=== PATIENT | male | born 1955 | race Caucasian/White ===

== ENCOUNTER 2019-06-29 11:22 | Observation (INO) | payer BC, MEDICARE ==
[2019-06-29] MEDS ORDERED: ASPIRIN 81 MG PO STA (11:41)
[2019-06-29] MEDS ORDERED: SODIUM CHLORIDE 0.9% 1,000 ML IV STA (11:41)
[2019-06-29] MEDS ORDERED: MORPHINE SULFATE 4 MG/ML SYRINGE IVP STA ×2 (11:42→13:58)
[2019-06-29 12:01] LABS: Basophils % (A) 0 %; Eosinophils # (A) 0.1 k/uL (0-0.7); Eosinophils % (A) 1 %; HGB 16.8 gm/dL (13.0-17.5); Lymphocytes # (A) 1.3 k/uL (1.0-4.8); Lymphocytes % (A) 8 %; MCH 30.6 pg (25.0-35.0); MCHC 32.9 g/dL (31.0-37.0); MCV 93.1 fL (80.0-100.0); Mean Platelet Volume 7.8; Monocytes # (A) 0.4 k/uL (0-1.0); Monocytes % (A) 3 %; Neutrophils # (A) 14.6 k/uL (1.3-7.7); Neutrophils % (A) 88 %; Platelet Count 256 k/uL (150-450); RBC 5.48 m/uL (4.30-5.90); RDW 13.5 % (11.5-15.5); WBC 16.6 k/uL (3.8-10.6)
--- NOTE | 2019-06-29 12:06 | ED ---
Chest Pain HPI - General Chief Complaint: Chest Pain Stated Complaint: Chest pain Time Seen by Provider: 06/29/19 11:25 Source: patient Mode of arrival: ambulatory Limitations: no limitations - History of Present Illness Initial Comments: The patient is a 64-year-old male with no past medical history who presents to the emergency room with reported chest pain. He states that around 7 AM this morning had sudden onset of chest pain located over the left side of his chest which radiates into his left arm up to his left jaw. He has associated shortnes s of breath. Denies nausea or vomiting. No previous history of cardiac disease. Denies history of CO or arrhythmias. States he last had a stress test when he was 48 years old and is reportedly normal. Denies ripping calf. He does not follow with a doctor currently. Used to have a history of alcohol abuse. States he only drinks twice per month for which he did have one beer yesterday. He also admits to THC use. Does not take any prescribed medications. Patient continues to smoke a pack of cigarettes per day. He denies a ripping or tearing sensation to his back. Denies fevers or chills. No cough or hemoptysis. Denies abdominal pain. No back or flank pain. There are no alleviating, precipitating or modifying factors - Related Data Home Medications Medication Instructions Recorded Confirmed Cholecalciferol [Vitamin D3 (25 5,000 unit PO DAILY 06/29/19 06/29/19 Mcg = 1000 Iu)] Multivitamins, Thera [Multivitamin 1 tab PO DAILY 06/29/19 06/29/19 (formulary)] Previous Rx's Medication Instructions Recorded Apixaban [Eliquis] 5 mg PO BID #60 tab 06/30/19 Metoprolol Succinate (ER) [Toprol 12.5 mg PO DAILY #30 tab.er.24h 06/30/19 XL] Allergies Allergy/AdvReac Type Severity Reaction Status Date / Time Sulfa (Sulfonamide AdvReac Rash/Hives Verified 06/29/19 13:49 Antibiotics) Review of Systems ROS Statement: Those systems with pertinent positive or pertinent negative responses have been documented in the HPI. ROS Other: All systems not noted in ROS Statement are negative. EKG Findings - EKG Comments: EKG Findings:: EKG demonstrates A. fib with a rate of 127. QRS 90. QTC of 475. ST depression in inferior leads. No acute ST segment elevations. A repeat EKG was performed at 1408 which demonstrated that the patient converted to normal sinus rhythm. Rate is 52. When necessary of 160. QRS 92. QTC of 399. There is J-point elevation in leads 2, 3, aVF V2 through V6. Inverted T-wave in aVL. Past Medical History Past Medical History: Thyroid Disorder Additional Past Medical History / Comment(s): pts. reports pt. has had back surgery and had broken clavicles in the past History of Any Multi-Drug Resistant Organisms: None Reported Past Surgical History: Orthopedic Surgery Past Anesthesia/Blood Transfusion Reactions: No Reported Reaction Past Psychological History: No Psychological Hx Reported Smoking Status: Current every day smoker Past Alcohol Use History: None Reported Past Drug Use History: Marijuana - Past Family History Father Family Medical History: Cancer Mother Additional Family Medical History / Comment(s): pts. states his mother from alzheimers General Exam Limitations: no limitations General appearance: alert, in no apparent distress Head exam: Present: atraumatic, normocephalic, normal inspection Eye exam: Present: normal appearance, PERRL, EOMI. Absent: scleral icterus, conjunctival injection, periorbital swelling ENT exam: Present: normal exam, mucous membranes moist Neck exam: Present: normal inspection. Absent: tenderness, meningismus, lymphadenopathy Respiratory exam: Present: normal lung sounds bilaterally. Absent: respiratory distress, wheezes, rales, rhonchi, stridor Cardiovascular Exam: Present: tachycardia, irregular rhythm, normal heart sounds. Absent: systolic murmur, diastolic murmur, rubs, gallop, clicks GI/Abdominal exam: Present: soft, normal bowel sounds. Absent: distended, tenderness, guarding, rebound, rigid Extremities exam: Present: normal inspection, full ROM, normal capillary refill. Absent: tenderness, pedal edema, joint swelling, calf tenderness Back exam: Present: normal inspection Neurological exam: Present: alert, oriented X3, CN II-XII intact Psychiatric exam: Present: normal affect, normal mood Skin exam: Present: warm, dry, intact, normal color. Absent: rash Course Vital Signs 06/29/19 06/29/19 06/29/19 11:24 13:13 13:23 Temperature 98.1 F Pulse Rate 72 133 H 130 H Respiratory 18 18 Rate Blood Pressure 130/92 123/93 O2 Sat by Pulse 99 98 97 Oximetry 06/29/19 06/29/19 06/29/19 14:00 15:00 16:00 Temperature 98.1 F Pulse Rate 58 L 51 L 53 L Respiratory 18 18 18 Rate Blood Pressure 103/68 101/67 113/52 O2 Sat by Pulse 100 100 99 Oximetry Chest Pain MDM - MDM Upon arrival the patient was placed into room 2. A thorough history and physical exam was performed. 12-lead EKG was performed which demonstrates the patient is in atrial fibrillation with rapid ventricular response up to 150. The patient denies a history of A. fib. Peripheral IV was established. The patient was given a liter bolus of normal saline. Laboratory studies were conducted patient went for chest x-ray. He is started on a Cardizem drip for which she does have improvement in his heart rate. He was given an initial 10 mg bolus and placed on 5 mg per hour. He patient was also given 4 of morphine for pain. Lab studies demonstrated a white blood cell count of 16.6. D-dimer 0.46. Troponin less than 0.012. BNP is 1330. Chest x-ray demonstrates COPD and trace right pleural effusion or chronic pleural reaction. I discussed these results with the patient. I discussed diagnosis, differential treatment options. The patient has no contra indication to heparin and therefore the patient is started on heparin drip. I did recommend hospitalization for cardiology consultation for which the patient did agree. I discussed the case with Dr. Reeves who accepted admission for the patient. He is currently awaiting a bed on the floor in stable condition At 1410 I was made aware that the patient converted to normal sinus rhythm. A repeat EKG was performed. Cardizem will be discontinued at this time. Critical Care Time Critical Care Time: Yes Critical Care Time: 35 minutes Disposition Clinical Impression: New onset a-fib, Chest pain Disposition: ADMITTED IP TO THIS HOSP Condition: Stable Is patient prescribed a controlled substance at d/c from ED?: No Decision to Admit Reason: Admit from EC Decision Date: 06/29/19 Decision Time: 13:50
[2019-06-29 12:10] LABS: ALT 16 U/L (4-49); AST 23 U/L (17-59); African American GFR (CKD) >90 (>60 ml/min/1.73 sqM); Albumin 4.3 g/dL (3.5-5.0); Alkaline Phosphatase 80 U/L (38-126); Anion Gap 6 mmol/L; Blood Urea Nitrogen 11 mg/dL (9-20); Calcium 9.3 mg/dL (8.4-10.2); Carbon Dioxide 27 mmol/L (22-30); Chloride 104 mmol/L (98-107); Creatine Kinase 97 U/L (55-170); Glucose 129 mg/dL (74-99); Magnesium 1.9 mg/dL (1.6-2.3); Non-African American GFR(CKD) >90 (>60 ml/min/1.73 sqM); Potassium 4.1 mmol/L (3.5-5.1); Sodium 137 mmol/L (137-145); Total Bilirubin 0.5 mg/dL (0.2-1.3)
[2019-06-29 12:16] LABS: D-Dimer 0.46 mg/L FEU (<0.60); INR 0.9 (<1.2); Partial Thromboplastin Time 24.7 sec (22.0-30.0); Prothrombin Time 9.7 sec (9.0-12.0)
[2019-06-29] MEDS ORDERED: MAGNESIUM SULFATE-D5W PMX 1 GM in DEXTROSE/WATER 1 100ML.BAG IVPB ONE (12:37)
--- NOTE | 2019-06-29 12:37 | XR ---
EXAMINATION TYPE: XR chest 2V DATE OF EXAM: 06/29/2019 COMPARISON: 02/01/2014 HISTORY: Chest pain for one day TECHNIQUE: Frontal and lateral views of the chest are obtained. FINDINGS: There is no focal air space opacity, pleural effusion, or pneumothorax seen. Pulmonary hy perinflation of underlying COPD. Blunting of the right costophrenic angle from chronic trace pleural effusion or chronic pleural reaction. The cardiac silhouette size is within normal limits. Mild mult ilevel degenerative change of the spine. The osseous structures are intact. IMPRESSION: COPD and chronic trace right pleural effusion or chronic pleural reaction stable from 20 14.
[2019-06-29] MEDS ORDERED: DILTIAZEM DRIP BOLUS FROM BAG 1 MG SOLN IV ONE (12:44)
[2019-06-29] MEDS ORDERED: DILTIAZEM 125 MG in SODIUM CHLORIDE 0.9% 100 ML IV SCH (13:00)
[2019-06-29] MEDS ORDERED: HEPARIN SODIUM,PORCINE 5,000 UNIT/ML 1 ML VIAL IV ONE (13:35)
[2019-06-29] MEDS ORDERED: HEPARIN SODIUM,PORCINE 5,000 UNIT/ML 1 ML VIAL IV PRN (13:35)
[2019-06-29] MEDS ORDERED: HEPARIN SOD,PORK IN 0.45% NACL 25,000 UNIT in 0.45% NACL 1 250ML.BAG IV SCH (13:45)
[2019-06-29] MEDS ORDERED: NALOXONE 0.4 MG/ML 1 ML VIAL IV PRN (13:51)
--- NOTE | 2019-06-29 15:11 | P.CRDCN ---
History of Present Illness Consult date: 06/29/19 Consult reason: atrial fibrillation Chief complaint: Chest pain History of present illness: This is a 64-year-old gentleman with no significant past medical history of any cardiac issues, he denies any history of hypertension, no diabetes, no hyperlipidemia, he smokes one pack of cigarettes per day, uses marijuana, COPD, he used to drink alcohol quite heavily, at this time he only has an alcoholic drink once or twice a month. He does have history of bowel surgery. Patient presented to the hospital on this occasion with symptoms of chest discomfort which she described as quite severe in nature, radiating across his entire chest into his left arm and left jaw area, he does admit to having some associated shortness of breath. Patient states he denies any fever at home but has been having chills at home. He also has a cough in the morning which she attributes to his and nicotine dependence and has been on a regular basis. His EKG on presentation here showed atrial fibrillation with a rapid ventricular response, patient was initiated on an IV Cardizem drip and converted to normal sinus rhythm. His subsequent EKG showed a normal sinus rhythm with peaked T waves in all of the leads. Chest x-ray shows COPD and chronic trace of right sided pleural effusion, stable from 2013. Blood pressure at this time 104/60 with a heart rate in the 50s, 100% on 2 L of oxygen. White blood cell count 16.6, hemoglobin 16.8, platelet count 256. D-dimer 0.4. Sodium 137, potassium 4.1, BUN 11, creatinine 0.7, magnesium 1.9. Troponin 0.012, BNP level 1330, TSH 2.3. At the time of my examination in the emergency room, patient continues to have chest pain but only on taking a very deep breath. Past Medical History Past Medical History: Thyroid Disorder Additional Past Medical History / Comment(s): pts. reports pt. has had back surgery and had broken clavicles in the past History of Any Multi-Drug Resistant Organisms: None Reported Past Surgical History: Orthopedic Surgery Past Anesthesia/Blood Transfusion Reactions: No Reported Reaction Past Psychological History: No Psychological Hx Reported Smoking Status: Current every day smoker Past Alcohol Use History: None Reported Past Drug Use History: Marijuana - Past Family History Father Family Medical History: Cancer Mother Additional Family Medical History / Comment(s): pts. states his mother from alzheimers Medications and Allergies Home Medications Medication Instructions Recorded Confirmed Type Cholecalciferol [Vitamin D3 (25 5,000 unit PO DAILY 06/29/19 06/29/19 History Mcg = 1000 Iu)] Multivitamins, Thera [Multivitamin 1 tab PO DAILY 06/29/19 06/29/19 History (formulary)] Allergies Allergy/AdvReac Type Severity Reaction Status Date / Time Sulfa (Sulfonamide AdvReac Rash/Hives Verified 06/29/19 13:49 Antibiotics) Physical Exam Vitals: Vital Signs Temp Pulse Resp BP Pulse Ox 06/29/19 14:00 58 L 18 103/68 100 06/29/19 13:23 130 H 18 123/93 97 06/29/19 13:13 133 H 98 06/29/19 11:24 98.1 F 72 18 130/92 99 Intake and Output 06/29/19 06/29/19 06/29/19 06:59 14:59 22:59 Other: Weight 71.668 kg PHYSICAL EXAMINATION: GENERAL: 64-year-old gentleman in no acute distress at the time of my examination HEENT: Head is atraumatic, normocephalic. Pupils equal, round. Sclera anicteric. Conjunctiva are clear. Mucous membranes of the mouth are moist. Neck is supple. There is no elevated jugular venous pressure. No carotid bruit is heard. HEART EXAMINATION: Heart S1, S2 normal. No murmur or gallop heard. CHEST EXAMINATION: lungs reveal some fine scattered wheezing throughout. ABDOMEN: Soft, nontender. Bowel sounds are heard. No organomegaly noted. EXTREMITIES: 2+ peripheral pulses with no evidence of peripheral edema and no calf tenderness noted. NEUROLOGIC patient is awake, alert and oriented 3 . . Results 06/29/19 11:40 06/29/19 11:40 Cardiac Enzymes 06/29/19 06/29/19 Range/Units 11:40 11:40 AST 23 (17-59) U/L Troponin I <0.012 (0.000-0.034) ng/mL Coagulation 06/29/19 Range/Units 11:40 PT 9.7 (9.0-12.0) sec APTT 24.7 (22.0-30.0) sec CBC 06/29/19 Range/Units 11:40 WBC 16.6 H (3.8-10.6) k/uL RBC 5.48 (4.30-5.90) m/uL Hgb 16.8 (13.0-17.5) gm/dL Hct 51.0 (39.0-53.0) % Plt Count 256 (150-450) k/uL Comprehensive Metabolic Panel 06/29/19 Range/Units 11:40 Sodium 137 (137-145) mmol/L Potassium 4.1 (3.5-5.1) mmol/L Chloride 104 (98-107) mmol/L Carbon Dioxide 27 (22-30) mmol/L BUN 11 (9-20) mg/dL Creatinine 0.73 (0.66-1.25) mg/dL Glucose 129 H (74-99) mg/dL Calcium 9.3 (8.4-10.2) mg/dL AST 23 (17-59) U/L ALT 16 (4-49) U/L Alkaline Phosphatase 80 (38-126) U/L Total Protein 7.0 (6.3-8.2) g/dL Albumin 4.3 (3.5-5.0) g/dL Current Medications Generic Name Dose Route Start Last Admin Trade Name Freq PRN Reason Stop Dose Admin Heparin Sodium (Porcine) 0 unit 06/29/19 13:35 Heparin IV PER PROTOCOL PRN Low PTT Protocol Diltiazem HCl 125 mg/ Sodium 125 mls @ 5 mls/hr 06/29/19 13:00 06/29/19 13:19 Chloride IV 5 mg/hr .Q24H YANICK 5 mls/hr Administration 5 MG/HR Heparin Sodium/Sodium Chloride 250 mls @ 8.6 mls/hr 06/29/19 13:45 06/29/19 14:06 25,000 unit/ Sodium Chloride IV 12 units/kg/hr .Q24H YANICK 8.6 mls/hr Administration Protocol 12 UNITS/KG/HR Naloxone HCl 0.2 mg 06/29/19 13:51 Narcan IV Q2M PRN Opioid Reversal Intake and Output 06/29/19 06/29/19 06/29/19 06:59 14:59 22:59 Other: Weight 71.668 kg Patient Weight 06/30/19 06:59 Weight 71.668 kg 06/29/19 11:40 06/29/19 11:40 EKG Interpretations (text) Initial EKG shows atrial fibrillation with rapid ventricular response Assessment and Plan Plan: Assessment and plan #1 atrial fibrillation with rapid ventricular response, converted to normal sinus rhythm, paroxysmal #2 nicotine dependence #3 marijuana use #4 COPD #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 Admitted to the telemetry unit overnight. DNP note has been reviewed, I agree with a documented findings and plan of care. Patient was seen and examined.
--- NOTE | 2019-06-29 17:32 | ECHOF ---
Referral Reason:afib MEASUREMENTS -------- HEIGHT: 182.9 cm WEIGHT: 71.7 kg BP: IVSd: 0.9 cm (0.6 - 1.1) LVIDd: 4.3 cm (3.9 - 5.3) LVPWd: 1.1 cm (0.6 - 1.1) IVSs: 1.4 cm LVIDs: 2.3 cm LVPWs: 1.4 cm LAESV Index (A-L): 29.36 ml/m Ao Diam: 3.2 cm (2.0 - 3.7) AV Cusp: 2.0 cm (1.5 - 2.6) LA Diam: 4.2 cm (2.7 - 3.8) MV EXCURSION: 24.295 mm (> 18.000) MV EF SLOPE: 122 mm/s (70 - 150) EPSS: 3.1 cm MV E Estuardo: 0.57 m/s MV DecT: 190 ms MV A Estuardo: 0.44 m/s MV E/A Ratio: 1.28 RAP: 5.00 mmHg RVSP: 33.70 mmHg TAPSE: 28.11 mm FINDINGS -------- Sinus rhythm. This was a technically good study. The left ventricular size is normal. Left ventricular wall thickness is normal. Overall left vent ricular systolic function is low-normal with, an EF between 50 - 55 %. The diastolic filling patter n is normal for the age of the patient 6.56. The right ventricle is normal in size. The left atrial size is normal. Normal LA size by volume 22+/-6 ml/m2. The right atrial size is normal. Aortic valve is trileaflet and is mildly thickened. The mitral valve is normal. The mitral valve leaflets are mildly thickened. There is trace mitral regurgitation. The tricuspid valve appears structurally normal. Trace tricuspid regurgitation present. Right omar tricular systolic pressure is normal at < 35 mmHg. There is no pulmonic regurgitation present. The aortic root size is normal. Normal inferior vena cava with normal inspiratory collapse consistent with estimated right atrial pre ssure of 5 mmHg. There is no pericardial effusion. CONCLUSIONS -------- 1. Sinus rhythm. 2. This was a technically good study. 3. The left ventricular size is normal. 4. Left ventricular wall thickness is normal. 5. Overall left ventricular systolic function is low-normal with, an EF between 50 - 55 %. 6. The diastolic filling pattern is normal for the age of the patient 6.56 7. The right ventricle is normal in size. 8. The left atrial size is normal. 9. Normal LA size by volume 22+/-6 ml/m2. 10. The right atrial size is normal. 11. Aortic valve is trileaflet and is mildly thickened. 12. The mitral valve is normal. 13. The mitral valve leaflets are mildly thickened. 14. There is trace mitral regurgitation. 15. The tricuspid valve appears structurally normal. 16. Trace tricuspid regurgitation present. 17. Right ventricular systolic pressure is normal at < 35 mmHg. 18. There is no pulmonic regurgitation present. 19. The aortic root size is normal. 20. Normal inferior vena cava with normal inspiratory collapse consistent with estimated right atrial pressure of 5 mmHg. 21. There is no pericardial effusion. PROGRESS CLERK: Agnieszka Corrales RDCS
[2019-06-29] MEDS ORDERED: IPRATROPIUM-ALBUTEROL 3 ML NEB INHALATION PRN (17:33)
[2019-06-29] MEDS ORDERED: HYDROcodone/APAP 5-325MG 1 EACH TAB PO PRN (17:33)
[2019-06-29] MEDS ORDERED: ACETAMINOPHEN TAB 325 MG TAB PO PRN (17:33)
--- NOTE | 2019-06-29 17:55 | P.HPIM ---
History of Present Illness H&P Date: 06/29/19 Chief Complaint: chest pain 58 year old male with PMH of COPD presents the ED for chest pain. patient states that the pain woke him up from sleep. Patient reports chest pain that was left- sided and pressure-like in nature. Patient reported radiation towards his left arm. Pain was 12 out of 10 in severity. His chest pain was associated with shortness of breath. He denies any diaphoresis, nausea or vomiting. Patient currently complains of chest pain with deep inspiration. He reports a chronic headache that starts from the occipital area and radiates to the front of his head. Patient also reports a cough that he describes as a smoker's cough. He also reports chronic diarrhea after he had a colonic resection. He denies any headache, lower extremity edema, fever or chills, changes in urination. No changes in appetite or weight. Patient denies any dizziness, num bness/weakness/tingling of the extremities. In the ED, his vital signs are stable except for heart rate of 133. CBC showed a leukocytosis of 16.6. Coagulation panel was negative. D-dimer was negative.chest x-ray showed signs of COPD. EKG showed atrial fibrillation with rapid ventricular rate. Patient is admitted for A. fib with RVR with cardiology in consultation. Review of Systems Pertinent positives and negatives as discussed in HPI, a complete review of systems was performed and all other systems are negative. Past Medical History Past Medical History: Thyroid Disorder Additional Past Medical History / Comment(s): pts. reports pt. has had back surgery and had broken clavicles in the past History of Any Multi-Drug Resistant Organisms: None Reported Past Surgical History: Orthopedic Surgery Past Anesthesia/Blood Transfusion Reactions: No Reported Reaction Past Psychological History: No Psychological Hx Reported Smoking Status: Current every day smoker Past Alcohol Use History: None Reported Past Drug Use History: Marijuana - Past Family History Father Family Medical History: Cancer Mother Additional Family Medical History / Comment(s): pts. states his mother from alzheimers Medications and Allergies Home Medications Medication Instructions Recorded Confirmed Type Cholecalciferol [Vitamin D3 (25 5,000 unit PO DAILY 06/29/19 06/29/19 History Mcg = 1000 Iu)] Multivitamins, Thera [Multivitamin 1 tab PO DAILY 06/29/19 06/29/19 History (formulary)] Allergies Allergy/AdvReac Type Severity Reaction Status Date / Time Sulfa (Sulfonamide AdvReac Rash/Hives Verified 06/29/19 13:49 Antibiotics) Physical Exam Vitals: Vital Signs Temp Pulse Resp BP Pulse Ox 06/29/19 16:00 98.1 F 53 L 18 113/52 99 06/29/19 15:00 51 L 18 101/67 100 06/29/19 14:00 58 L 18 103/68 100 06/29/19 13:23 130 H 18 123/93 97 06/29/19 13:13 133 H 98 06/29/19 11:24 98.1 F 72 18 130/92 99 Intake and Output 06/29/19 06/29/19 06/29/19 06:59 14:59 22:59 Other: Weight 71.668 kg General: [non toxic], [no distress], [appears at stated age] Derm: [warm], [dry] Head: [atraumatic], [normocephalic], [symmetric] Eyes: [EOMI], [no lid lag], [anicteric sclera] Mouth: [no lip lesion], [mucus membranes moist] Cardiovascular: [S1S2 reg], [no murmur], [positive DP pulse bilateral], Lungs: [decreased breath sounds bilateral], [no rhonchi, no rales] , [no accessory muscle use] Abdominal: [soft], [ nontender to palpation], [no guarding], [no appreciable organomegaly] Ext: [no gross muscle atrophy], [no edema], [no contractures] Neuro: [ CN II-XI grossly intact], [no focal neuro deficits] Psych: [Alert], [oriented], [appropriate affect] Results CBC & Chem 7: 06/29/19 11:40 06/29/19 11:40 Labs: Abnormal Lab Results - Last 24 Hours (Table) 06/29/19 06/29/19 Range/Units 11:40 11:40 WBC 16.6 H (3.8-10.6) k/uL Neutrophils # 14.6 H (1.3-7.7) k/uL Glucose 129 H (74-99) mg/dL Assessment and Plan Assessment: Chest pain A. fib with RVR Nicotine dependence COPD Leukocytosis Patient symptomsof chest pain are related to A. fib with RVR. Troponin was less than 0.012 with EKG showing A. fib with RVR with heart rate of 147. Chest x-ray showing signs of COPD. Patient was given diltiazem IV in the ED which converted him to sinus. He has been started on a heparin drip. Plan is to trend tropo melissa/EKG to rule out ACS. Obtain echocardiogram. Patient be placed on telemetry monitoring. He has been started on metoprolol by mouth. Cardiology has been consulted. He will be offered nicotine patch for his nicotine dependence. His COPD is stable and he will be given DuoNeb as needed for shortness of breath or wheezing. Patient has a WBC count of 16.6 with neutrophilic predominance. There are no signs of infection and is likely reactive. We will continue to monitor the patient and repeat CBC tomorrow morning. Patient is pending clinical improvement. He is admitted for anticipated greater than 48 hour admission for A. fib with RVR and cardiology consultation. DVT prophylaxis: [heparin drip] Discussed with: [patient] Anticipated discharge: [home] Anticipated discharge place: [1-2 days] A total of [45] minutes was spent on the care of this complex patient more than 50% of the time was spent in counseling and care coordination.
[2019-06-29] MEDS: METOPROLOL SUCCINATE (ER) 25 MG TAB.ER.24H PO SCH (22:02)
[2019-06-30 05:45] LABS: Basophils % (A) 0 %; Eosinophils # (A) 0.2 k/uL (0-0.7); Eosinophils % (A) 2 %; HCT 45.5 % (39.0-53.0); HGB 14.9 gm/dL (13.0-17.5); Lymphocytes # (A) 1.8 k/uL (1.0-4.8); Lymphocytes % (A) 18 %; MCH 30.6 pg (25.0-35.0); MCHC 32.7 g/dL (31.0-37.0); MCV 93.8 fL (80.0-100.0); Mean Platelet Volume 7.9; Monocytes # (A) 0.7 k/uL (0-1.0); Monocytes % (A) 7 %; Neutrophils # (A) 7.1 k/uL (1.3-7.7); Neutrophils % (A) 72 %; Platelet Count 186 k/uL (150-450); RBC 4.85 m/uL (4.30-5.90); RDW 13.5 % (11.5-15.5); WBC 9.9 k/uL (3.8-10.6)
[2019-06-30 05:59] LABS: Partial Thromboplastin Time 63.1 sec (22.0-30.0); Prothrombin Time 10.5 sec (9.0-12.0)
[2019-06-30] MEDS ORDERED: APIXABAN 5 MG TAB PO SCH (11:45)
--- NOTE | 2019-06-30 12:00 | P.PN ---
Subjective Progress Note Date: 06/30/19 This is a 64-year-old gentleman with no significant past medical history of any cardiac issues, he denies any history of hypertension, no diabetes, no hyperlipidemia, he smokes one pack of cigarettes per day, uses marijuana, COPD, he used to drink alcohol quite heavily, at this time he only has an alcoholic drink once or twice a month. He does have history of bowel surgery. Patient presented to the hospital on this occasion with symptoms of chest discomfort which she described as quite severe in nature, radiating across his entire chest into his left arm and left jaw area, he does admit to having some associated shortness of breath. Patient states he denies any fever at home but has been having chills at home. He also has a cough in the morning which she attributes to his and nicotine dependence and has been on a regular basis. His EKG on presentation here showed atrial fibrillation with a rapid ventricular response, patient was initiated on an IV Cardizem drip and converted to normal sinus rhythm. His subsequent EKG showed a normal sinus rhythm with peaked T waves in all of the leads. Chest x-ray shows COPD and chronic trace of right sided pleural effusion, stable from 2013. Blood pressure at this time 104/60 with a heart rate in the 50s, 100% on 2 L of oxygen. White blood cell count 16.6, hemoglobin 16.8, platelet count 256. D-dimer 0.4. Sodium 137, potassium 4.1, BUN 11, creatinine 0.7, magnesium 1.9. Troponin 0.012, BNP level 1330, TSH 2.3. At the time of my examination in the emergency room, patient continues to have chest pain but only on taking a very deep breath. 06/30/2019 Patient seen and examined this morning, overall feeling significantly better. Continues to be in a normal sinus rhythm. Echocardiogram with Doppler study revealed an ejection fraction of 50-55%. Objective - Vital Signs Vital signs: Vital Signs Temp 98.4 F 06/30/19 03:36 Pulse 53 L 06/30/19 03:37 Resp 18 06/30/19 03:37 BP 110/65 06/30/19 03:36 Pulse Ox 95 06/30/19 03:36 Intake & Output 06/29/19 06/30/19 06/30/19 18:59 06:59 18:59 Intake Total 1164.93 420 Balance 1164.93 420 Weight 71.668 kg 71.6 kg Intake: IV 600 0.9 @75ml/hr 600 Intake, IV Titration 64.93 Amount Heparin Sod,Pork in 0.45% 64.93 NaCl 25,000 unit In 0.45 % NaCl 1 250ml.bag @ 12 UNITS/KG/HR 8.6 mls/hr IV .Q24H [facility] Rx#:[id number] Oral 500 420 Other: Voiding Method Toilet # Voids 1 - Exam PHYSICAL EXAMINATION: GENERAL: 64-year-old gentleman in no acute distress at the time of my examination HEENT: Head is atraumatic, normocephalic. Pupils equal, round. Sclera anicteric. Conjunctiva are clear. Mucous membranes of the mouth are moist. Neck is supple. There is no elevated jugular venous pressure. No carotid bruit is heard. HEART EXAMINATION: Heart S1, S2 normal. No murmur or gallop heard. CHEST EXAMINATION: lungs reveal some fine scattered wheezing throughout. ABDOMEN: Soft, nontender. Bowel sounds are heard. No organomegaly noted. EXTREMITIES: 2+ peripheral pulses with no evidence of peripheral edema and no calf tenderness noted. NEUROLOGIC patient is awake, alert and oriented 3 . - Labs CBC & Chem 7: 06/30/19 05:30 06/29/19 11:40 Labs: Abnormal Lab Results - Last 24 Hours (Table) 06/29/19 06/29/19 06/29/19 Range/Units 11:40 11:40 20:10 WBC 16.6 H (3.8-10.6) k/uL Neutrophils # 14.6 H (1.3-7.7) k/uL APTT 31.1 H (22.0-30.0) sec Glucose 129 H (74-99) mg/dL 06/30/19 Range/Units 05:30 WBC (3.8-10.6) k/uL Neutrophils # (1.3-7.7) k/uL APTT 63.1 H (22.0-30.0) sec Glucose (74-99) mg/dL Assessment and Plan Plan: Assessment and plan #1 atrial fibrillation with rapid ventricular response, converted to normal sinus rhythm, paroxysmal #2 nicotine dependence #3 marijuana use #4 COPD #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 Continue beta garrett. Patient may be able to be discharged home once cleared by primary. We'll make him a follow-up appointment in the office post discharge. DNP note has been reviewed, I agree with a documented findings and plan of care. Patient was seen and examined.
[2019-06-30 12:21] VITALS: PULSE 51; TEMP 98.2
[2019-06-30] MEDS: METOPROLOL SUCCINATE (ER) 25 MG TAB.ER.24H PO SCH (12:28)
--- NOTE | 2019-06-30 13:25 | P.DS ---
Providers Date of admission: 06/29/19 13:50 Expected date of discharge: 06/30/19 Attending physician: Ronny Case MD Consults: 06/29/19 13:51 Consult Physician Urgent Consulting Provider: [facility] Consult Reason/Comments: new onset afib Do you want consulting provider notified?: Yes Primary care physician: Stated None Hospital Course: 58 year old male with PMH of COPD presents the ED for chest pain. patient states that the pain woke him up from sleep. Patient reports chest pain that was left- sided and pressure-like in nature. Patient reported radiation towards his left arm. Pain was 12 out of 10 in severity. His chest pain was associated with shortness of breath. He denies any diaphoresis, nausea or vomiting. Patient currently complains of chest pain with deep inspiration. He reports a chronic headache that starts from the occipital area and radiates to the front of his head. Patient also reports a cough that he describes as a smoker's cough. He also reports chronic diarrhea after he had a colonic resection. He denies any headache, lower extremity edema, fever or chills, changes in urination. No changes in appetite or weight. Patient denies any dizziness, numbness/weakness/tingling of the extremities. In the ED, his vital signs are stable except for heart rate of 133. CBC showed a leukocytosis of 16.6. Coagulation panel was negative. D-dimer was negative.chest x-ray showed signs of COPD. EKG showed atrial fibrillation with rapid ventricular rate. Patient is admitted for A. fib with RVR with cardiology in consultation. Patient symptoms of chest pain are related to A. fib with RVR. Troponin was less than 0.012x3 with EKG showing A. fib with RVR with heart rate of 147. Chest x-ray showing signs of COPD. Patient was given diltiazem IV in the ED which converted him to sinus. He has been started on a heparin drip and transitioned to Eliquis for discharge. Echocardiogram showed EF 50-55%. He has been started on metopro lol by mouth and maintain sinus rhythm. Patient was seen and examined. No acute events overnight. Patient reports significant improvement in his symptoms since admission. He denies any chest pain, shortness of breath or palpitations. No nausea or vomiting. No fever or chills. General: [non toxic], [no distress], [appears at stated age] Derm: [warm], [dry] Head: [atraumatic], [normocephalic], [symmetric] Eyes: [EOMI], [no lid lag], [anicteric sclera] Mouth: [no lip lesion], [mucus membranes moist] Cardiovascular: [S1S2 reg], [no murmur], [positive DP pulse bilateral], Lungs: [decreased breath sounds bilateral], [no rhonchi, no rales] , [no accessory muscle use] Abdominal: [soft], [ nontender to palpation], [no guarding], [no appreciable organomegaly] Ext: [no gross muscle atrophy], [no edema], [no contractures] Neuro: [no focal neuro deficits] Psych: [Alert], [oriented], [appropriate affect] Chest pain A. fib with RVR Nicotine dependence COPD Patient is maintain sinus rhythm. He'll be discharged on metoprolol by mouth. Warning symptoms of abnormal bleeding for Eliquis discussed with patient. Leukocytosis is resolved. He will be discharged home with close follow-up with cardiology. This complex discharge took about 35 minutes to complete. Pertinent Studies: Chest x-ray, echocardiogram Patient Condition at Discharge: Stable Plan - Discharge Summary Discharge Rx Participant: No New Discharge Prescriptions: New Apixaban [Eliquis] 5 mg PO BID #60 tab Metoprolol Succinate (ER) [Toprol XL] 25 mg PO DAILY #30 tab.er.24h Continue Multivitamins, Thera [Multivitamin (formulary)] 1 tab PO DAILY Cholecalciferol [Vitamin D3 (25 Mcg = 1000 Iu)] 5,000 unit PO DAILY Discharge Medication List Cholecalciferol [Vitamin D3 (25 Mcg = 1000 Iu)] 5,000 unit PO DAILY 06/29/19 [History] Multivitamins, Thera [Multivitamin (formulary)] 1 tab PO DAILY 06/29/19 [History] Apixaban [Eliquis] 5 mg PO BID #60 tab 06/30/19 [Rx] Metoprolol Succinate (ER) [Toprol XL] 25 mg PO DAILY #30 tab.er.24h 06/30/19 [Rx] Follow up Appointment(s)/Referral(s): None,Stated [Primary Care Provider] - 1-2 days Rickey Arzate MD [STAFF PHYSICIAN] - 1 Week Activity/Diet/Wound Care/Special Instructions: Follow-up PCP within 3 days of discharge. Follow-up with cardiology within 1 week of discharge. Discharge Disposition: HOME SELF-CARE
[2019-06-30 15:13] VITALS: BP 105/63; RESP 16
[2019-07-01] MEDS ORDERED: METOPROLOL SUCCINATE (ER) 25 MG TAB.ER.24H PO SCH (09:00)
== END 2019-06-30 16:25 | disposition home or self-care (01) ==
LOC: EC 11:22 → INTOOBSV 13:50 → 3SCARD 13:50 → UNDODISIN 06-30 16:25
PROVIDERS: ADMIT Family Medicine; ATTEND Family Medicine
DX: I48.0 Paroxysmal atrial fibrillation (principal); D72.829 Elevated white blood cell count, unspecified; E07.9 Disorder of thyroid, unspecified; J44.9 Chronic obstructive pulmonary disease, unspecified; R51 Headache; K52.9 Noninfective gastroenteritis and colitis, unspecified; F17.210 Nicotine dependence, cigarettes, uncomplicated; F10.11 Alcohol abuse, in remission; F12.90 Cannabis use, unspecified, uncomplicated; Z87.81 Personal history of (healed) traumatic fracture; Z98.890 Other specified postprocedural states; Z88.2 Allergy status to sulfonamides; Z80.9 Family history of malignant neoplasm, unspecified; Z82.0 Family history of epilepsy and other diseases of the nervous system
CPT/HCPCS: 96376 ×2; 96366 ×3; 96368; 96361; 96365; 96367; 96375; 99291; 36415; 93005; 93306; 85379; 83880; 80053; 84443; 82550; 83735; 84484; 85025 ×2; 85610 ×2; 85730 ×2; 86140; 71046; G0378 ×2; J2270; J1644 ×2; J3475; 99285

== ENCOUNTER 2020-09-11 09:48 | Inpatient (IN) | payer MEDICARE ==
[2020-09-11] MEDS ORDERED: KETOROLAC 15 MG/ML 1 ML VIAL IVP STA (10:59)
[2020-09-11] MEDS ORDERED: ONDANSETRON 4 MG/2 ML VIAL IVP STA (10:59)
[2020-09-11] MEDS ORDERED: SODIUM CHLORIDE 0.9% 1,000 ML IV STA (10:59)
--- NOTE | 2020-09-11 11:06 | ED ---
General Adult HPI <Raudel Garcia - Last Filed: 09/11/20 12:24> - General Source: patient, family, RN notes reviewed Mode of arrival: wheelchair Limitations: no limitations <Yusuf Stewart - Last Filed: 09/11/20 12:35> - General Chief complaint: Abdominal Pain Stated complaint: lt sided abd pain, vomiting Time Seen by Provider: 09/11/20 10:25 - History of Present Illness Initial comments: 65-year-old male with a past medical history of gangrenous bowel with resection presents to the emergency room for a chief complaint of left flank pain. Patient reports he has had left flank and side pain since yesterday. He reports that he isn't sitting in his chair a lot over the past 2 days and this may have contributed. Patient states that movement worsens the pain. Patient states his urine has also been dark but this has been ongoing for a while. He denies noticing any blood in his urine. He denies fevers or chills. He denies nausea vomiting or changes in bowel movements. No fevers or chills.Patient has no other complaints at this time including shortness of breath, chest pain, abdominal pain, nausea or vomiting, headache, or visual changes. (Yusuf Stewart) - Related Data Home Medications Medication Instructions Recorded Confirmed Cholecalciferol [Vitamin D3 (25 5,000 unit PO DAILY 06/29/19 09/11/20 Mcg = 1000 Iu)] Multivitamins, Thera [Multivitamin 1 tab PO DAILY 06/29/19 09/11/20 (formulary)] Ascorbic Acid [Vitamin C] 500 mg PO DAILY 09/11/20 09/11/20 Calcium Carbonate [Calcium] 600 mg PO DAILY 09/11/20 09/11/20 Allergies Allergy/AdvReac Type Severity Reaction Status Date / Time Sulfa (Sulfonamide AdvReac Rash/Hives Verified 09/11/20 11:56 Antibiotics) Review of Systems ROS Other: All systems not noted in ROS Statement are negative. <Raudel Garcia - Last Filed: 09/11/20 12:24> ROS Other: All systems not noted in ROS Statement are negative. <Yusuf Stewart - Last Filed: 09/11/20 12:35> ROS Statement: Those systems with pertinent positive or pertinent negative responses have been documented in the HPI. Past Medical History Past Medical History: Thyroid Disorder Additional Past Medical History / Comment(s): pts. reports pt. has had back surgery and had broken clavicles in the past History of Any Multi-Drug Resistant Organisms: None Reported Past Surgical History: Orthopedic Surgery Past Anesthesia/Blood Transfusion Reactions: No Reported Reaction Past Psychological History: No Psychological Hx Reported Smoking Status: Current every day smoker Past Alcohol Use History: None Reported Past Drug Use History: Marijuana - Past Family History Father Family Medical History: Cancer Mother Additional Family Medical History / Comment(s): pts. states his mother from alzheimers <Yusuf Stewart - Last Filed: 09/11/20 12:35> General Exam Limitations: no limitations General appearance: alert, in no apparent distress Head exam: Present: atraumatic, normocephalic, normal inspection Eye exam: Present: normal appearance, PERRL, EOMI. Absent: scleral icterus, conjunctival injection, periorbital swelling ENT exam: Present: normal exam, mucous membranes moist Neck exam: Present: normal inspection, full ROM. Absent: tenderness, meningismus, lymphadenopathy Respiratory exam: Present: normal lung sounds bilaterally. Absent: respiratory distress, wheezes, rales, rhonchi, stridor Cardiovascular Exam: Present: regular rate, normal rhythm, normal heart sounds. Absent: systolic murmur, diastolic murmur, rubs, gallop, clicks GI/Abdominal exam: Present: soft, normal bowel sounds. Absent: distended, tenderness, guarding, rebound, rigid Back exam: Present: CVA tenderness (L). Absent: CVA tenderness (R) <Yusuf Stewart - Last Filed: 09/11/20 12:35> Course <Raudel Garcia - Last Filed: 09/11/20 12:24> Vital Signs 09/11/20 10:00 Temperature 98.3 F Pulse Rate 53 L Respiratory 18 Rate Blood Pressure 116/71 O2 Sat by Pulse 95 Oximetry - Reevaluation(s) Reevaluation #1: 09/11/20 12:25 PA supervision: I personally evaluate this case patient did present with complaints of left flank pain today. Imaging studies showed evidence of a infarct a left kidney. The case is discussed with Dr. Mejia. The patient will be admitted for inpatient evaluation and treatment. I do agree with the assessment and plan. (Raudel Garcia) Medical Decision Making - Lab Data Result diagrams: 09/11/20 11:09/11/20 11:01 <Raudel Garcia - Last Filed: 09/11/20 12:24> - Lab Data Result diagrams: 09/11/20 11:09/11/20 11:01 <Yusuf Stewart - Last Filed: 09/11/20 12:35> - Medical Decision Making Vitals are stable. Patient does have some left CVA tenderness. Benign abdominal exam. Laboratory evaluation initiated. CBC does show mild acidosis. CMP unremarkable. Lactic acid normal 1.6. Urinalysis shows small blood with 1+ ketones. CT abdomen and pelvis with contrast was obtained which showed a markedly abnormal enhancement pattern of the left kidney suggestive of severe pyelonephritis, vasculitis, or renal infarct, correlate clinically. There is also a 1 cm hyperdensity near the base of the penis that is nonspecific, does not appear to be calcific, could represent hemorrhage. I discussed this case with Dr. mejia who will admit patient. (Yusuf Stewart) - Lab Data Lab Results 09/11/20 09/11/20 09/11/20 Range/Units 11:01 11: 11:01 WBC 13.0 H (3.8-10.6) k/uL RBC 5.36 (4.30-5.90) m/uL Hgb 17.3 (13.0-17.5) gm/dL Hct 50.1 (39.0-53.0) % MCV 93.4 (80.0-100.0) fL MCH 32.3 (25.0-35.0) pg MCHC 34.6 (31.0-37.0) g/dL RDW 13.4 (11.5-15.5) % Plt Count 184 (150-450) k/uL MPV 8.3 Neutrophils % 85 % Lymphocytes % 9 % Monocytes % 5 % Eosinophils % 1 % Basophils % 0 % Neutrophils # 11.0 H (1.3-7.7) k/uL Lymphocytes # 1.1 (1.0-4.8) k/uL Monocytes # 0.6 (0-1.0) k/uL Eosinophils # 0.1 (0-0.7) k/uL Basophils # 0.0 (0-0.2) k/uL Sodium 138 (137-145) mmol/L Potassium 4.5 (3.5-5.1) mmol/L Chloride 103 (98-107) mmol/L Carbon Dioxide 26 (22-30) mmol/L Anion Gap 9 mmol/L BUN 18 (9-20) mg/dL Creatinine 0.95 (0.66-1.25) mg/dL Est GFR (CKD-EPI)AfAm >90 (>60 ml/min/1.73 sqM) Est GFR (CKD-EPI)NonAf 83 (>60 ml/min/1.73 sqM) Glucose 133 H (74-99) mg/dL Plasma Lactic Acid Josiah (0.7-2.0) mmol/L Calcium 9.9 (8.4-10.2) mg/dL Total Bilirubin 1.1 (0.2-1.3) mg/dL AST 43 (17-59) U/L ALT 26 (4-49) U/L Alkaline Phosphatase 82 (38-126) U/L Total Protein 7.2 (6.3-8.2) g/dL Albumin 4.5 (3.5-5.0) g/dL Amylase 51 (30-110) U/L Lipase 57 (23-300) U/L Urine Color Yellow Urine Appearance Clear (Clear) Urine pH 6.0 (5.0-8.0) Ur Specific [place] 1.027 (1.001-1.035) Urine Protein 2+ H (Negative) Urine Glucose (UA) Negative (Negative) Urine Ketones 1+ H (Negative) Urine Blood Small H (Negative) Urine Nitrite Negative (Negative) Urine Bilirubin Negative (Negative) Urine Urobilinogen 2.0 (<2.0) mg/dL Ur Leukocyte Esterase Negative (Negative) Urine RBC 4 (0-5) /hpf Urine WBC 3 (0-5) /hpf Ur Squamous Epith Cells 1 (0-4) /hpf Urine Mucus Many H (None) /hpf 09/11/20 Range/Units 11:01 WBC (3.8-10.6) k/uL RBC (4.30-5.90) m/uL Hgb (13.0-17.5) gm/dL Hct (39.0-53.0) % MCV (80.0-100.0) fL MCH (25.0-35.0) pg MCHC (31.0-37.0) g/dL RDW (11.5-15.5) % Plt Count (150-450) k/uL MPV Neutrophils % % Lymphocytes % % Monocytes % % Eosinophils % % Basophils % % Neutrophils # (1.3-7.7) k/uL Lymphocytes # (1.0-4.8) k/uL Monocytes # (0-1.0) k/uL Eosinophils # (0-0.7) k/uL Basophils # (0-0.2) k/uL Sodium (137-145) mmol/L Potassium (3.5-5.1) mmol/L Chloride (98-107) mmol/L Carbon Dioxide (22-30) mmol/L Anion Gap mmol/L BUN (9-20) mg/dL Creatinine (0.66-1.25) mg/dL Est GFR (CKD-EPI)AfAm (>60 ml/min/1.73 sqM) Est GFR (CKD-EPI)NonAf (>60 ml/min/1.73 sqM) Glucose (74-99) mg/dL Plasma Lactic Acid Josiah 1.6 (0.7-2.0) mmol/L Calcium (8.4-10.2) mg/dL Total Bilirubin (0.2-1.3) mg/dL AST (17-59) U/L ALT (4-49) U/L Alkaline Phosphatase (38-126) U/L Total Protein (6.3-8.2) g/dL Albumin (3.5-5.0) g/dL Amylase (30-110) U/L Lipase (23-300) U/L Urine Color Urine Appearance (Clear) Urine pH (5.0-8.0) Ur Specific [place] (1.001-1.035) Urine Protein (Negative) Urine Glucose (UA) (Negative) Urine Ketones (Negative) Urine Blood (Negative) Urine Nitrite (Negative) Urine Bilirubin (Negative) Urine Urobilinogen (<2.0) mg/dL Ur Leukocyte Esterase (Negative) Urine RBC (0-5) /hpf Urine WBC (0-5) /hpf Ur Squamous Epith Cells (0-4) /hpf Urine Mucus (None) /hpf Disposition <Raudel Garcia - Last Filed: 09/11/20 12:24> Is patient prescribed a controlled substance at d/c from ED?: No Time of Disposition: 12:35 <Yusuf Stewart - Last Filed: 09/11/20 12:35> Clinical Impression: Flank pain, Hematuria Narrative: abnormal left kidney enhancement (Yusuf Stewart) Disposition: ADMITTED IP TO THIS HOSP Referrals: None,Stated [Primary Care Provider] - 1-2 days
[2020-09-11 11:13] LABS: Basophils % (A) 0 %; Eosinophils # (A) 0.1 k/uL (0-0.7); Eosinophils % (A) 1 %; HCT 50.1 % (39.0-53.0); HGB 17.3 gm/dL (13.0-17.5); Lymphocytes # (A) 1.1 k/uL (1.0-4.8); Lymphocytes % (A) 9 %; MCH 32.3 pg (25.0-35.0); MCHC 34.6 g/dL (31.0-37.0); MCV 93.4 fL (80.0-100.0); Mean Platelet Volume 8.3; Monocytes # (A) 0.6 k/uL (0-1.0); Monocytes % (A) 5 %; Neutrophils % (A) 85 %; Platelet Count 184 k/uL (150-450); RBC 5.36 m/uL (4.30-5.90); RDW 13.4 % (11.5-15.5)
[2020-09-11 11:23] LABS: ALT 26 U/L (4-49); AST 43 U/L (17-59); African American GFR (CKD) >90 (>60 ml/min/1.73 sqM); Albumin 4.5 g/dL (3.5-5.0); Alkaline Phosphatase 82 U/L (38-126); Amylase 51 U/L (30-110); Anion Gap 9 mmol/L; Blood Urea Nitrogen 18 mg/dL (9-20); Calcium 9.9 mg/dL (8.4-10.2); Carbon Dioxide 26 mmol/L (22-30); Chloride 103 mmol/L (98-107); Glucose 133 mg/dL (74-99); Lipase 57 U/L (23-300); Non-African American GFR(CKD) 83 (>60 ml/min/1.73 sqM); Potassium 4.5 mmol/L (3.5-5.1); Sodium 138 mmol/L (137-145); Total Bilirubin 1.1 mg/dL (0.2-1.3); Total Protein 7.2 g/dL (6.3-8.2)
[2020-09-11 11:25] LABS: Appearance,Urine Clear (Clear); Bilirubin,Urine Negative (Negative); Blood,Urine Small (Negative); Color,Urine Yellow; Glucose,Urine (UA) Negative (Negative); Ketones,Urine 1+ (Negative); Leukocyte Esterase,Urine Negative (Negative); Mucus,Urine Many /hpf; Nitrite,Urine Negative (Negative); Protein,Urine 2+ (Negative); RBC,Urine 4 /hpf (0-5); Specific Gravity,Urine 1.027 (1.001-1.035); Squamous Epithelial Cell,Urine 1 /hpf (0-4); WBC,Urine 3 /hpf (0-5)
--- NOTE | 2020-09-11 12:03 | CT ---
EXAMINATION TYPE: CT abdomen pelvis w con DATE OF EXAM: 09/11/2020 COMPARISON: 01/29/2014 HISTORY: h/o left flank pain CT DLP: 588.1 mGycm Automated exposure control for dose reduction was used. CONTRAST: CT scan of the abdomen pelvis is performed with IV Contrast, patient injected with 100ml mL of Isovue 300. FINDINGS- LUNG BASES-hyperinflation compatible with COPD. Subsegmental consolidation suggestive of scar or atel ectasis at both lung bases. Heart is enlarged. Trace of pericardial fluid noted. LIVER/GB- No gross abnormality is appreciated. PANCREAS- No gross abnormality is seen. SPLEEN- No gross abnormality is seen. ADRENALS- No gross abnormality is seen. KIDNEYS/BLADDER-there is a markedly abnormal heterogeneous enhancement pattern to the left kidney whi ch could be on the basis of a severe pyelonephritis, vasculitis or renal infarct correlate clinically . Main renal artery appears to enhance. Neoplasm thought unlikely. Multiple small hypodensities measu ring less than 5 mm in both kidneys too small to characterize but likely related to cysts. Larger 2 c m hypodensity in the lower pole the right kidney measures 15 Hounsfield units suggestive of a cyst.. BOWEL-gas pattern nonspecific. Postsurgical change suspected in the right lower quadrant. LYMPH NODES- No greater than 1cm abdominal or pelvic lymph nodes areappreciated. OSSEOUS STRUCTURES-degenerative and postsurgical changes involving the vertebral column. Chronic appe aring deformity of the iliac bone hypertrophic arthropathy of the SI joints. Tarlov cysts in the sacr um suspected there is arthropathy of the hips. Nonspecific hyperdensity seen involving the base of the penis measuring 1 cm could represent an area of hemorrhage rather than calcification correlate with urinalysis.. OTHER- atherosclerotic change of the aorta. Stenosis involving the proximal right iliac artery suspe cted. Possible additional stenosis involving the distal right iliac artery. There is increased soft tissue in the pelvis likely represent the unopacified bowel loops. No oral co ntrast was administered which significantly limits the exam. Correlate clinically. IMPRESSION- 1. Markedly abnormal enhancement pattern of the left kidney suggests severe pyelonephritis, vasculiti s or renal infarct correlate clinically. 2. 1 cm hyperdensity near the base of the penis or urethra is nonspecific does not appear to be of ca lcific density could represent an area of hemorrhage correlate with urinalysis and urologic consultat ion. 3. COPD 4. Cardiomegaly
[2020-09-11] MEDS ORDERED: MORPHINE SULFATE 4 MG/ML SYRINGE IVP STA (12:22)
[2020-09-11] MEDS ORDERED: ONDANSETRON 4 MG/2 ML VIAL IVP PRN (12:35)
[2020-09-11] MEDS ORDERED: NALOXONE 0.4 MG/ML 1 ML VIAL IV PRN (12:35)
[2020-09-11] MEDS: SODIUM CHLORIDE 0.9% 1,000 ML IV SCH (13:04)
[2020-09-11] MEDS ORDERED: cefTRIAXone IN SWFI 1,000 MG/10 ML SYRINGE IVP STA (16:27)
[2020-09-11] MEDS: MORPHINE SULFATE 4 MG/ML SYRINGE IV PRN (21:25)
--- NOTE | 2020-09-11 23:45 | P.GSHP ---
History of Present Illness H&P Date: 09/11/20 Chief Complaint: left flank pain This is a 65 yo male with admitted to the hospital with left flank pain, that is associated with Nausea. He indicated pain has been ongoing for 1 day. Denies any hx of gross hematuria, renal stone, trauma or surgeries. Denies any simil ar symptoms in the past. He underwent CT abdomen/pelvis which is concerning for renal infarct vs pyelonephritis. Of note he is afebrile on presentation and his UA is negative. He has hx of Afib, in which he was diagnosed in 06/2019, he was placed on eliquis and Metoprolol at that time, but he is no longer taking any medications for his Afib. - Constitutional Constitutional: Denies chills, Denies fever - Cardiovascular Cardiovascular: Denies chest pain, Denies shortness of breath - Respiratory Respiratory: Denies cough, Denies 7 - Gastrointestinal Gastrointestinal: Reports nausea, Denies vomiting - Genitourinary (Female) Genitourinary: Reports flank pain, Denies dysuria, Denies hematuria - Musculoskeletal Musculoskeletal: Denies myalgias - Neurological Neurological: Denies numbness, Denies weakness Past Medical History Past Medical History: Thyroid Disorder Additional Past Medical History / Comment(s): pts. reports pt. has had back surgery and had broken clavicles in the past History of Any Multi-Drug Resistant Organisms: None Reported Past Surgical History: Orthopedic Surgery Past Anesthesia/Blood Transfusion Reactions: No Reported Reaction Past Psychological History: No Psychological Hx Reported Smoking Status: Current every day smoker Past Alcohol Use History: None Reported Past Drug Use History: Marijuana - Past Family History Father Family Medical History: Cancer Mother Additional Family Medical History / Comment(s): pts. states his mother from alzheimers Medications and Allergies Home Medications Medication Instructions Recorded Confirmed Type Cholecalciferol [Vitamin D3 (25 5,000 unit PO DAILY 06/29/19 09/11/20 History Mcg = 1000 Iu)] Multivitamins, Thera [Multivitamin 1 tab PO DAILY 06/29/19 09/11/20 History (formulary)] Ascorbic Acid [Vitamin C] 500 mg PO DAILY 09/11/20 09/11/20 History Calcium Carbonate [Calcium] 600 mg PO DAILY 09/11/20 09/11/20 History Allergies Allergy/AdvReac Type Severity Reaction Status Date / Time Sulfa (Sulfonamide AdvReac Rash/Hives Verified 09/11/20 11:56 Antibiotics) Surgical - Exam Vital Signs Temp Pulse Resp BP Pulse Ox 98.3 F 53 L 18 116/71 95 09/11/20 10:00 09/11/20 10:00 09/11/20 10:00 09/11/20 10:00 09/11/20 10:00 - General no distress, moderate pain - Eyes PERRL, normal ocular movement - ENT normal nares, normal mucosa - Respiratory normal expansion, normal respiratory effort - Abdomen Abdomen: soft, tender (left CVA) - Psychiatric oriented to time, oriented to person, oriented to place Results - Labs 09/11/20 11:01 09/11/20 11:01 Abnormal Lab Results - Last 24 Hours (Table) 09/11/20 09/11/20 09/11/20 Range/Units 11:01 11:01 11:01 WBC 13.0 H (3.8-10.6) k/uL Neutrophils # 11.0 H (1.3-7.7) k/uL Glucose 133 H (74-99) mg/dL Urine Protein 2+ H (Negative) Urine Ketones 1+ H (Negative) Urine Blood Small H (Negative) Urine Mucus Many H (None) /hpf Diabetes panel 09/11/20 Range/Units 11:01 Sodium 138 (137-145) mmol/L Potassium 4.5 (3.5-5.1) mmol/L Chloride 103 (98-107) mmol/L Carbon Dioxide 26 (22-30) mmol/L BUN 18 (9-20) mg/dL Creatinine 0.95 (0.66-1.25) mg/dL Glucose 133 H (74-99) mg/dL Calcium 9.9 (8.4-10.2) mg/dL AST 43 (17-59) U/L ALT 26 (4-49) U/L Alkaline Phosphatase 82 (38-126) U/L Total Protein 7.2 (6.3-8.2) g/dL Albumin 4.5 (3.5-5.0) g/dL Calcium panel 09/11/20 Range/Units 11:01 Calcium 9.9 (8.4-10.2) mg/dL Albumin 4.5 (3.5-5.0) g/dL Pituitary panel 09/11/20 Range/Units 11:01 Sodium 138 (137-145) mmol/L Potassium 4.5 (3.5-5.1) mmol/L Chloride 103 (98-107) mmol/L Carbon Dioxide 26 (22-30) mmol/L BUN 18 (9-20) mg/dL Creatinine 0.95 (0.66-1.25) mg/dL Glucose 133 H (74-99) mg/dL Calcium 9.9 (8.4-10.2) mg/dL Adrenal panel 09/11/20 Range/Units 11:01 Sodium 138 (137-145) mmol/L Potassium 4.5 (3.5-5.1) mmol/L Chloride 103 (98-107) mmol/L Carbon Dioxide 26 (22-30) mmol/L BUN 18 (9-20) mg/dL Creatinine 0.95 (0.66-1.25) mg/dL Glucose 133 H (74-99) mg/dL Calcium 9.9 (8.4-10.2) mg/dL Total Bilirubin 1.1 (0.2-1.3) mg/dL AST 43 (17-59) U/L ALT 26 (4-49) U/L Alkaline Phosphatase 82 (38-126) U/L Total Protein 7.2 (6.3-8.2) g/dL Albumin 4.5 (3.5-5.0) g/dL Assessment and Plan Assessment: 65 yo male admitted to the hospital with flank pain, based on CT review and his normal UA, the finding is more consistent with renal infarct rather than pyelonephritis. I see no stranding around the kidney and his UA is negative. Given his hx of Afib and and wedge shaped abnormal enhancement this is more consistent with renal infarct -No acute surgical intervention -Pain control -Will consult Cardiology given hx of Afib and recent embolic event
[2020-09-12] MEDS: MORPHINE SULFATE 4 MG/ML SYRINGE IV PRN ×2 (02:03→08:40)
[2020-09-12] MEDS: SODIUM CHLORIDE 0.9% 1,000 ML IV SCH ×2 (05:09→13:38)
[2020-09-12] MEDS ORDERED: cefTRIAXone IN SWFI 1,000 MG/10 ML SYRINGE IVP SCH (09:00)
[2020-09-12 10:34] LABS: Basophils % (A) 0 %; Eosinophils # (A) 0.2 k/uL (0-0.7); Eosinophils % (A) 1 %; HCT 46.4 % (39.0-53.0); HGB 15.6 gm/dL (13.0-17.5); Lymphocytes # (A) 1.3 k/uL (1.0-4.8); Lymphocytes % (A) 9 %; MCH 32.2 pg (25.0-35.0); MCHC 33.5 g/dL (31.0-37.0); MCV 95.9 fL (80.0-100.0); Mean Platelet Volume 8.1; Monocytes # (A) 0.8 k/uL (0-1.0); Monocytes % (A) 6 %; Neutrophils # (A) 11.8 k/uL (1.3-7.7); Neutrophils % (A) 83 %; Platelet Count 153 k/uL (150-450); RBC 4.83 m/uL (4.30-5.90); RDW 13.5 % (11.5-15.5); WBC 14.2 k/uL (3.8-10.6)
[2020-09-12 10:58] LABS: African American GFR (CKD) >90 (>60 ml/min/1.73 sqM); Anion Gap 4 mmol/L; Blood Urea Nitrogen 15 mg/dL (9-20); Calcium 8.5 mg/dL (8.4-10.2); Carbon Dioxide 26 mmol/L (22-30); Chloride 105 mmol/L (98-107); Glucose 136 mg/dL (74-99); Non-African American GFR(CKD) >90 (>60 ml/min/1.73 sqM); Potassium 4.2 mmol/L (3.5-5.1); Sodium 135 mmol/L (137-145)
[2020-09-12] MEDS: KETOROLAC 15 MG/ML 1 ML VIAL IVP SCH ×3 (12:04→23:32)
[2020-09-12] MEDS ORDERED: ALPRAZolam 0.25 MG TAB PO PRN (13:11)
[2020-09-12] MEDS ORDERED: TEMAZEPAM 15 MG CAP PO PRN (13:11)
[2020-09-12] MEDS ORDERED: HEPARIN SODIUM 1,000 UN/ML (10ML VL) IV PRN (13:12)
[2020-09-12] MEDS ORDERED: HEPARIN SOD,PORK IN 0.45% NACL 25,000 UNIT in 0.45% NACL 1 250ML.BAG IV SCH (13:15)
[2020-09-12] MEDS: PANTOPRAZOLE 40 MG TABLET PO SCH (13:35)
[2020-09-12] MEDS ORDERED: SODIUM CHLORIDE 0.9% 500 ML 500 ML IV ONE (13:50)
[2020-09-12] MEDS: NICOTINE 14MG/24HR PATCH TRANSDERM SCH (14:02)
[2020-09-12] MEDS: APIXABAN 5 MG TAB PO SCH ×2 (14:13→20:01)
[2020-09-12] MEDS: METOPROLOL TARTRATE 25 MG TAB PO SCH ×2 (14:14→20:00)
[2020-09-12 14:16] LABS: Basophils % (A) 0 %; Eosinophils # (A) 0.1 k/uL (0-0.7); Eosinophils % (A) 1 %; HCT 46.8 % (39.0-53.0); HGB 15.7 gm/dL (13.0-17.5); Lymphocytes # (A) 1.8 k/uL (1.0-4.8); Lymphocytes % (A) 13 %; MCH 31.6 pg (25.0-35.0); MCHC 33.5 g/dL (31.0-37.0); MCV 94.6 fL (80.0-100.0); Mean Platelet Volume 8.3; Monocytes # (A) 0.7 k/uL (0-1.0); Monocytes % (A) 5 %; Neutrophils # (A) 11.1 k/uL (1.3-7.7); Neutrophils % (A) 80 %; Platelet Count 155 k/uL (150-450); RBC 4.95 m/uL (4.30-5.90); RDW 13.4 % (11.5-15.5); WBC 13.9 k/uL (3.8-10.6)
[2020-09-12 14:27] LABS: INR 1.1 (<1.2); Prothrombin Time 11.7 sec (9.0-12.0)
--- NOTE | 2020-09-12 14:41 | XR ---
EXAMINATION TYPE: XR chest 1V portable DATE OF EXAM: 09/12/2020 COMPARISON: Chest x-ray 06/29/2019, CT 09/11/2020 HISTORY: Atrial fibrillation TECHNIQUE: Single frontal view of the chest is obtained. FINDINGS: There is lateralization of the right hemidiaphragm, blunting the right costophrenic angle. Findings are stable compared to prior exam. Heart size may appears somewhat more prominently due to differences in technique, rotation. Interstitium appears prominently. No pneumothorax. IMPRESSION: Probable basilar scarring and chronic pleural reaction
[2020-09-12 14:43] LABS: C Reactive Protein 5.8 mg/dL (<1.0)
--- NOTE | 2020-09-12 14:53 | CONS ---
CONSULTATION DATE OF SERVICE: 09/12/2020 REASON FOR CONSULTATION: Advice regarding renal infarct and other medical issues, requested by Dr. Santos. HISTORY OF PRESENT ILLNESS: This 65-year-old gentleman with a past medical history of thyroid disorder surgery, history of nicotine dependence, being followed by no primary physician in the outpatient setting was admitted to [facility] with complaints of severe left flank pain. The patient has some nausea and some vomiting also. The patient had previous history of treatment atrial fibrillation, but currently not compliant with medications. The patient has left renal infarct. Patient admitted to the hospital for further evaluation and treatment. There is no history of fever, rigors. No history of headache, loss of consciousness, seizures at this time. PAST MEDICAL HISTORY: History of apparent atrial fibrillation, history of thyroid disorder, history of smoking. MEDICATIONS: Multivitamins, vitamin D3, calcium, vitamin C. ALLERGIES: SULFA. FAMILY HISTORY: Family history of dementia. SOCIAL HISTORY: History of smoking. Occasional alcohol intake. REVIEW OF SYSTEMS: ENT: No diminished vision. No diminished hearing. CARDIOVASCULAR system: As mentioned earlier. RESPIRATION: No cough. GI as mentioned earlier. : As mentioned earlier. NERVOUS SYSTEM: No numbness or weakness. ALLERGY/IMMUNOLOGY: No asthma or hayfever. MUSCULOSKELETAL: As mentioned earlier. HEMATOLOGY/ONCOLOGY: No history of anemia. ENDOCRINE: No history of diabetes. CONSTITUTIONAL: As mentioned earlier. DERMATOLOGY: Negative. RHEUMATOLOGY: Negative. PSYCHIATRIC: As mentioned earlier. PHYSICAL EXAMINATION: Alert and oriented times three. Pulse 67 and irregular. Blood pressure is 80/62, respirations 16, temperature 98.9, pulse ox 98% on room air. HEENT: Conjunctivae normal. Oral mucosa moist. NECK is no jugular venous distention. No carotid bruit. No lymph node enlargement. CARDIOVASCULAR: S1, S2 irregular. No murmur. No thrills. RESPIRATORY: Breath sounds diminished in the bases. A few scattered rhonchi. ABDOMEN: Soft. Mild diffuse discomfort on the left side of the abdomen. Otherwise no mass palpable. Bowel sounds present. No ascites. LEGS: No edema. No swelling. NERVOUS SYSTEM: Higher functions as mentioned earlier. Moves all 4 limbs. No focal motor or sensory deficits. LYMPHATICS: No lymph nodes palpable in the neck, axillae or groin. JOINTS: No active deforming arthropathy. SKIN: No ulcer, rash or bleeding. LABS: WBC 14.2, hemoglobin 15.6, sodium 135, glucose 136. CT scan reviewed. ASSESSMENT: 1. Significant left flank pain and as well as acute left renal infarct. 2. Increased WBC, possibly reactive. 3. Atrial fibrillation with fast ventricular rate. 4. Relative hypotension. 5. Hyponatremia. 6. History of thyroid disorder. 7. History of back surgery, degenerative joint disease. 8. History of nicotine dependence. 9. Severe protein calorie malnutrition with body mass index of 19.5. 10.History of THC. 11.History of noncompliance. 12.FULL CODE. RECOMMENDATIONS AND DISCUSSION: This 65-year-old gentleman who presented with multiple complex medical issues, we will monitor the patient closely, continue the current medications, management and symptomatic treatment. Otherwise, at this time, I recommend complete workup including 2D echo and EKG. Thyroid functions. Otherwise, smoking cessation advice has been given. Habitrol patch. Follow the anticoagulants. Cardiology consultation. Guarded prognosis because of multiple complex medical issues. Further recommendations to follow. Recommend the patient follow up with primary physician closely in the outpatient setting. Stable but prognosis guarded. Thank you Dr. Santos for letting us participate in the care of this patient. MMODL / IJN: [id number] /
[2020-09-12 15:08] LABS: Erythrocyte Sedimentation Rate 4 mm/hr (0-15)
--- NOTE | 2020-09-12 17:14 | ECHOF ---
Referral Reason:afib MEASUREMENTS -------- HEIGHT: 185.4 cm WEIGHT: 70.8 kg BP: IVSd: 0.8 cm (0.6 - 1.1) LVIDd: 5.2 cm (3.9 - 5.3) LVPWd: 0.9 cm (0.6 - 1.1) IVSs: 1.0 cm LVIDs: 4.5 cm LVPWs: 1.0 cm RAP: 5.00 mmHg RVSP: 14.95 mmHg FINDINGS -------- Atrial fibrillation. This was a technically good study. The left ventricular size is normal. Left ventricular wall thickness is normal. There is severe g lobal hypokinesis of LV . Overall left ventricular systolic function is severely impaired with, an EF between 20 - 25 %. The right ventricle is normal in size. The left atrial size is normal. The right atrial size is normal. The aortic valve is trileaflet and appears structurally normal. The mitral valve is normal. The mitral valve leaflets are mildly thickened. There is trace mitral regurgitation. The tricuspid valve appears structurally normal. Trace tricuspid regurgitation present. Right omar tricular systolic pressure is normal at < 35 mmHg. There is no pulmonic regurgitation present. The aortic root size is normal. Normal inferior vena cava with normal inspiratory collapse consistent with estimated right atrial pre ssure of 5 mmHg. There is no pericardial effusion. CONCLUSIONS -------- 1. The left ventricular size is normal. 2. Left ventricular wall thickness is normal. 3. There is severe global hypokinesis of LV . 4. Overall left ventricular systolic function is severely impaired with, an EF between 20 - 25 %. 5. The mitral valve leaflets are mildly thickened. 6. There is trace mitral regurgitation. 7. Trace tricuspid regurgitation present. 8. There is no pericardial effusion. PAST DUE ACCOUNTS CLERK: Agnieszka Corrales, [facility]
--- NOTE | 2020-09-12 18:37 | P.PN ---
Subjective Progress Note Date: 09/12/20 No acute overnight events, still having left flank pain. Denies any nausea vomiting Objective - Vital Signs Vital signs: Vital Signs Temp 98.9 F 09/12/20 12:31 Pulse 101 H 09/12/20 14:09 Resp 16 09/12/20 08:54 BP 99/86 09/12/20 14:09 Pulse Ox 98 09/12/20 12:31 Intake & Output 09/11/20 09/12/20 09/12/20 18:59 06:59 18:59 Intake Total 750 540 Output Total 200 250 Balance 550 290 Weight 70.76 kg Intake: Intake, IV Titration 750 Amount Sodium Chloride 0.9% 1, 750 000 ml @ 75 mls/hr IV . [id number] YANICK Rx#:[id number] Oral 540 Output: Urine 200 250 Other: # Voids 2 - Constitutional General appearance: Present: no acute distress - Gastrointestinal General gastrointestinal: Present: tenderness - Psychiatric Psychiatric: Present: A&O x's 3 - Labs CBC & Chem 7: 09/12/20 13:57 09/12/20 10:05 Labs: Abnormal Lab Results - Last 24 Hours (Table) 09/12/20 09/12/20 09/12/20 Range/Units 10:05 10:05 10:05 WBC 14.2 H (3.8-10.6) k/uL Neutrophils # 11.8 H (1.3-7.7) k/uL Sodium 135 L (137-145) mmol/L Glucose 136 H (74-99) mg/dL C-Reactive Protein 5.8 H (<1.0) mg/dL 09/12/20 Range/Units 13:57 WBC 13.9 H (3.8-10.6) k/uL Neutrophils # 11.1 H (1.3-7.7) k/uL Sodium (137-145) mmol/L Glucose (74-99) mg/dL C-Reactive Protein (<1.0) mg/dL Assessment and Plan Assessment: 65 yo male admitted to the hospital with flank pain, based on CT review and his normal UA, the finding is more consistent with renal infarct rather than pyelonephritis. I see no stranding around the kidney and his UA is negative. Given his hx of Afib and and wedge shaped abnormal enhancement this is more consistent with renal infarct -No acute surgical intervention -Pain control -Will consult Cardiology given hx of Afib and recent embolic event
[2020-09-13] MEDS: KETOROLAC 15 MG/ML 1 ML VIAL IVP SCH ×3 (04:54→17:09)
[2020-09-13 08:04] LABS: Basophils % (A) 0 %; Eosinophils # (A) 0.1 k/uL (0-0.7); Eosinophils % (A) 1 %; HCT 44.5 % (39.0-53.0); HGB 14.9 gm/dL (13.0-17.5); Lymphocytes # (A) 1.7 k/uL (1.0-4.8); Lymphocytes % (A) 15 %; MCH 31.6 pg (25.0-35.0); MCHC 33.5 g/dL (31.0-37.0); MCV 94.5 fL (80.0-100.0); Mean Platelet Volume 8.8; Monocytes # (A) 0.7 k/uL (0-1.0); Monocytes % (A) 6 %; Neutrophils % (A) 78 %; Platelet Count 148 k/uL (150-450); RBC 4.71 m/uL (4.30-5.90); RDW 13.3 % (11.5-15.5); WBC 11.6 k/uL (3.8-10.6)
[2020-09-13 08:31] LABS: African American GFR (CKD) >90 (>60 ml/min/1.73 sqM); Anion Gap 3 mmol/L; Blood Urea Nitrogen 18 mg/dL (9-20); Carbon Dioxide 28 mmol/L (22-30); Chloride 103 mmol/L (98-107); Glucose 83 mg/dL (74-99); Non-African American GFR(CKD) >90 (>60 ml/min/1.73 sqM); Potassium 4.3 mmol/L (3.5-5.1); Sodium 134 mmol/L (137-145)
[2020-09-13] MEDS: CHOLECALCIFEROL 25 MCG (1000 IU) TABLET PO SCH (08:43)
[2020-09-13] MEDS: APIXABAN 5 MG TAB PO SCH ×2 (08:43→20:00)
[2020-09-13] MEDS: CALCIUM CARBONATE 500 MG CHEWABLE PO SCH (08:43)
[2020-09-13] MEDS: PANTOPRAZOLE 40 MG TABLET PO SCH (08:43)
[2020-09-13] MEDS: ASCORBIC ACID 500 MG TAB PO SCH (08:43)
[2020-09-13] MEDS: METOPROLOL TARTRATE 25 MG TAB PO SCH (08:44)
[2020-09-13] MEDS: NICOTINE 14MG/24HR PATCH TRANSDERM SCH (08:44)
[2020-09-13] MEDS: MULTIVITAMINS, THERA 1 EACH TAB PO SCH (08:44)
[2020-09-13] MEDS ORDERED: SPIRONOLACTONE 25 MG TAB PO SCH (10:45)
--- NOTE | 2020-09-13 11:58 | P.CRDCN ---
History of Present Illness History of present illness: HISTORY OF PRESENTING ILLNESS This is a pleasant 65-year-old male past medical history significant for paroxysmal atrial fibrillation diagnosed June 2019 was been noncompliant with anticoagulation and beta blockers, chronic nicotine dependence and daily marijuana use. He does not follow in the office with a director information security. We have been asked to see in consultation for atrial fibrillation. He presented to the hospital with symptoms of left flank pain. Diagnostic imaging revealed abnormal enhancement pattern of the left kidney suggestive of severe pyelonephritis, vasculitis or renal infarct. He has been seen in evaluation by urology who believes this is related to embolism. The patient is seen and examined resting comfortably lying flat in bed in no acute distress. He denies symptoms of chest pain, dizziness or palpitations. He states over the previous few months he has noted worsening exertional shortness of breath as well as orthopnea and PND. There was no EKG obtained on admission however yesterday the nurse ordered 1 secondary to tachycardia on his exam and it revealed atrial fibrillation with rapid ventricular rate. He was placed on telemetry which reveals his heart rate fluctuates between 9940. Chest x-ray reveals basilar scarring. Echocardiogram obtained revealed severely impaired LV systolic function with ejection fraction 20-25%. Compared to echocardiogram obtained in 2019 this is a significant changes at that time his LV function was normal. Laboratory data reviewed, WBC on admission 13 repeat today 11.6, hemoglobin 14.9, platelets 148, sodium 134, potassium 4.3, creatinine 0.84, TSH 4.66. He currently takes no daily indications. REVIEW OF SYSTEMS At the time of my exam: CONSTITUTIONAL: Denies fever or chills. CARDIOVASCULAR: Complains of shortness of breath, orthopnea and PND. Denies chest pain or palpitations. RESPIRATORY: Denies cough. GASTROINTESTINAL: Denies abdominal pain, diarrhea, constipation, nausea or vomiting. MUSCULOSKELETAL: Denies myalgias. NEUROLOGIC: Denies numbness, tingling, headacbe or weakness. ENDOCRINE: Denies fatigue, weight change, polydipsia or polyurina. GENITOURINARY: Denies burning, hematuria or urgency with micturation. HEMATOLOGIC: Denies history of anemia or bleeding. PHYSICAL EXAMINATION Blood pressure 124/81 heart rate 106 afebrile and maintaining oxygen saturation on room air. CONSTITUTIONAL: No apparent distress. Frail. HEENT: Head is normocephalic. Pupils are equal, round. Sclerae anicteric. Mucous membranes of the mouth are moist. No JVD. No carotid bruit. CHEST EXAMINATION: Lungs are clear to auscultation. No chest wall tenderness is noted on palpation or with deep breathing. HEART EXAMINATION: Irregular and tachycardic rate and rhythm. S1, S2 heard. No murmurs, gallops or rub. ABDOMEN: Soft, nontender. Positive bowel sounds. EXTREMITIES: 2+ peripheral pulses, no lower extremity edema and no calf tenderness. NEUROLOGIC EXAMINATION: Patient is awake, alert and oriented x3. ASSESSMENT Paroxysmal atrial fibrillation with rapid ventricular rate Renal infarct Acute systolic heart failure likely secondary to A. fib with RVR Chronic nicotine dependence Daily marijuana use Frail, BMI 19 Medical noncompliance PLAN Resume Eliquis 5 mg twice a day as previously prescribed. Initiate Lopressor 25 mg twice a day and increase as tolerated. Due to hypotension he cannot tolerate ASHLEY/ARB at this time. Clinically he is euvolemic and not in acute heart failure however decreased EF is new for him. Further recommendations to follow based upon clinical course. Thank you kindly for this consultation. Nurse Practitioner note has been reviewed, I agree with a documented findings and plan of care. Patient was seen and examined. Past Medical History Past Medical History: Thyroid Disorder Additional Past Medical History / Comment(s): pts. reports pt. has had back surgery and had broken clavicles in the past History of Any Multi-Drug Resistant Organisms: None Reported Past Surgical History: Orthopedic Surgery Past Anesthesia/Blood Transfusion Reactions: No Reported Reaction Past Psychological History: No Psychological Hx Reported Smoking Status: Current every day smoker Past Alcohol Use History: None Reported Past Drug Use History: Marijuana - Past Family History Father Family Medical History: Cancer Mother Additional Family Medical History / Comment(s): pts. states his mother from alzheimers Medications and Allergies Home Medications Medication Instructions Recorded Confirmed Type Cholecalciferol [Vitamin D3 (25 5,000 unit PO DAILY 06/29/19 09/11/20 History Mcg = 1000 Iu)] Multivitamins, Thera [Multivitamin 1 tab PO DAILY 06/29/19 09/11/20 History (formulary)] Ascorbic Acid [Vitamin C] 500 mg PO DAILY 09/11/20 09/11/20 History Calcium Carbonate [Calcium] 600 mg PO DAILY 09/11/20 09/11/20 History Allergies Allergy/AdvReac Type Severity Reaction Status Date / Time Sulfa (Sulfonamide AdvReac Rash/Hives Verified 09/11/20 11:56 Antibiotics) Physical Exam Vitals: Vital Signs Temp Pulse Pulse Resp BP Pulse Ox 09/13/20 08:42 106 H 124/81 09/13/20 05:00 98.6 F 81 18 97/64 96 09/12/20 19:56 98.6 F 76 18 105/71 95 09/12/20 14:09 101 H 99/86 09/12/20 12:31 98.9 F 67 86/62 98 Intake and Output 09/12/20 09/13/20 09/13/20 22:59 06:59 14:59 Intake Total 540 Output Total 250 Balance 290 Intake: Oral 540 Output: Urine 250 Other: # Voids 2 2 Results 09/13/20 06:56 09/13/20 06:56 Coagulation 09/12/20 Range/Units 13:57 PT 11.7 (9.0-12.0) sec APTT 24.0 (22.0-30.0) sec CBC 09/12/20 09/12/20 09/13/20 Range/Units 10:05 13:57 06:56 WBC 14.2 H 13.9 H 11.6 H (3.8-10.6) k/uL RBC 4.83 4.95 4.71 (4.30-5.90) m/uL Hgb 15.6 15.7 14.9 (13.0-17.5) gm/dL Hct 46.4 46.8 44.5 (39.0-53.0) % Plt Count 153 155 148 L (150-450) k/uL Comprehensive Metabolic Panel 09/12/20 09/13/20 Range/Units 10:05 06:56 Sodium 135 L 134 L (137-145) mmol/L Potassium 4.2 4.3 (3.5-5.1) mmol/L Chloride 105 103 (98-107) mmol/L Carbon Dioxide 26 28 (22-30) mmol/L BUN 15 18 (9-20) mg/dL Creatinine 0.84 0.84 (0.66-1.25) mg/dL Glucose 136 H 83 (74-99) mg/dL Calcium 8.5 8.0 L (8.4-10.2) mg/dL Current Medications Generic Name Dose Route Start Last Admin Trade Name Freq PRN Reason Stop Dose Admin Hydrocodone Bitart/Acetaminophen 1 each 09/12/20 13:11 Hydrocodone/Apap 5-325mg 1 Each Tab PO Q6HR PRN Pain Alprazolam 0.25 mg 09/12/20 13:11 Alprazolam 0.25 Mg Tab PO TID PRN Anxiety Apixaban 5 mg 09/12/20 14:00 09/13/20 08:43 Apixaban 5 Mg Tab PO 5 mg BID YANICK Administration Ascorbic Acid 500 mg 09/13/20 09:00 09/13/20 08:43 Ascorbic Acid 500 Mg Tab PO 500 mg DAILY YANICK Administration Calcium Carbonate/Glycine 500 mg 09/13/20 09:00 09/13/20 08:43 Calcium Carbonate 500 Mg Chewable PO 500 mg DAILY YANICK Administration Cholecalciferol 125 mcg 09/13/20 09:00 09/13/20 08:43 Cholecalciferol 25 Mcg (1000 Iu) Tablet PO 125 mcg DAILY YANICK Administration Ceftriaxone Sodium 1 gm/ 50 mls @ 100 mls/hr 09/12/20 09:00 09/13/20 08:43 Sodium Chloride IVPB 100 mls/hr Q24HR YANICK Administration Ketorolac Tromethamine 15 mg 09/12/20 12:00 09/13/20 04:54 Ketorolac 15 Mg/Ml 1 Ml Vial IVP 09/15/20 08:37 15 mg Q6HR YANICK Administration Metoprolol Tartrate 25 mg 09/12/20 14:00 09/13/20 08:44 Metoprolol Tartrate 25 Mg Tab PO 25 mg BID YANICK Administration Morphine Sulfate 4 mg 09/11/20 12:35 09/12/20 08:40 Morphine Sulfate 4 Mg/Ml Syringe IV 4 mg Q4HR PRN Administration Severe Pain Multivitamins 1 each 09/13/20 09:00 09/13/20 08:44 Multivitamins, Thera 1 Each Tab PO 1 each DAILY YANICK Administration Naloxone HCl 0.2 mg 09/11/20 12:35 Naloxone 0.4 Mg/Ml 1 Ml Vial IV Q2M PRN Opioid Reversal Nicotine 1 patch 09/12/20 13:15 09/13/20 08:44 Nicotine 14mg/24hr Patch TRANSDERM Not Given DAILY YANICK Ondansetron HCl 4 mg 09/11/20 12:35 09/12/20 02:37 Ondansetron 4 Mg/2 Ml Vial IVP 4 mg Q8HR PRN Administration Nausea And Vomiting Pantoprazole Sodium 40 mg 09/12/20 13:15 09/13/20 08:43 Pantoprazole 40 Mg Tablet PO 40 mg [id number] YANICK Administration Temazepam 15 mg 09/12/20 13:11 Temazepam 15 Mg Cap PO HS PRN Insomnia Intake and Output 09/12/20 09/13/20 09/13/20 22:59 06:59 14:59 Intake Total 540 Output Total 250 Balance 290 Intake: Oral 540 Output: Urine 250 Other: # Voids 2 2 09/13/20 06:56 09/13/20 06:56
[2020-09-13 12:47] LABS: INR 1.15 (0.90-1.11); Prothrombin Time 12.4 sec (9.9-11.9)
--- NOTE | 2020-09-13 16:53 | P.PN ---
Subjective Progress Note Date: 09/13/20 No acute overnight events, flank pain significant only improved today. Denies any nausea vomiting Objective - Vital Signs Vital signs: Vital Signs Temp 98.3 F 09/13/20 11:59 Pulse 53 L 09/13/20 11:59 Resp 19 09/13/20 11:59 BP 105/68 09/13/20 11:59 Pulse Ox 96 09/13/20 11:59 Intake & Output 09/12/20 09/13/20 09/13/20 18:59 06:59 18:59 Intake Total 540 Output Total 250 250 Balance 290 -250 Intake: Oral 540 Output: Urine 250 250 Other: Voiding Method Toilet # Voids 2 2 - Constitutional General appearance: Present: no acute distress - Gastrointestinal General gastrointestinal: Present: soft. Absent: distended, tenderness - Psychiatric Psychiatric: Present: A&O x's 3 - Labs CBC & Chem 7: 09/13/20 06:56 09/13/20 06:56 Labs: Abnormal Lab Results - Last 24 Hours (Table) 09/13/20 09/13/20 09/13/20 Range/Units 06:56 06:56 06:56 WBC 11.6 H (3.8-10.6) k/uL Plt Count 148 L (150-450) k/uL Neutrophils # 9.0 H (1.3-7.7) k/uL PT 12.4 H (9.9-11.9) sec INR 1.15 H (0.90-1.11) Sodium 134 L (137-145) mmol/L Calcium 8.0 L (8.4-10.2) mg/dL Magnesium (1.6-2.3) mg/dL Troponin I (0.000-0.034) ng/mL 09/13/20 09/13/20 Range/Units 06:56 06:56 WBC (3.8-10.6) k/uL Plt Count (150-450) k/uL Neutrophils # (1.3-7.7) k/uL PT (9.9-11.9) sec INR (0.90-1.11) Sodium (137-145) mmol/L Calcium (8.4-10.2) mg/dL Magnesium 1.4 L (1.6-2.3) mg/dL Troponin I 0.058 H* (0.000-0.034) ng/mL Microbiology - Last 24 Hours (Table) 09/12/20 10:05 Blood Culture - Preliminary Blood No Growth after 24 hours Assessment and Plan Assessment: 65 yo male admitted to the hospital with flank pain, based on CT review and his normal UA, the finding is more consistent with renal infarct rather than pyelonephritis. I see no stranding around the kidney and his UA is negative. Given his hx of Afib and and wedge shaped abnormal enhancement this is more consistent with renal infarct - Plan: -We will discontinue antibiotics -Follow-up as an outpatient with urology in 4 weeks, will plan on obtaining a renal bladder ultrasound at that time
[2020-09-13] MEDS ORDERED: Magnesium Replacement Protocol 1 EACH MISC MISCELLANE PRN (18:11)
[2020-09-13] MEDS ORDERED: Potassium Replacement Protocol 1 EACH MISC MISCELLANE PRN (18:11)
[2020-09-13] MEDS: METOPROLOL TARTRATE 12.5 MG TAB PO SCH (20:00)
--- NOTE | 2020-09-13 20:56 | PN ---
PROGRESS NOTE DATE OF SERVICE: 09/13/2020 This 65-year-old gentleman who was admitted with significant left flank pain as well as left renal infarct also has atrial fibrillation. No chest pain. No palpitation. Two- D echo showed also reduced ejection fraction. The patient has history of noncompliance. Cardiology following the patient. Patient started on Eliquis. Urology also seen the patient. Ejection fraction found to be 20-25%. The patient complains of minimal abdominal pain at this time. PAST MEDICAL HISTORY: Reviewed. REVIEW OF SYSTEMS: CARDIOVASCULAR As mentioned earlier. RESPIRATORY No cough, no hemoptysis. GI As mentioned earlier. No dysuria or hematuria. NERVOUS No numbness or weakness. CURRENT MEDICATIONS: Reviewed include [place], Xanax, Eliquis, vitamin C, Tums, vitamin D3, Ultram, Lopressor. Doses reviewed. PHYSICAL EXAMINATION: Alert and oriented x2. Pulse is 53, blood pressure is 105/60, respiration 19, temperature 98.2, pulse ox 98% on room air. HEENT: Conjunctivae normal. Oral mucosa moist. NECK: No jugular venous distention. No lymph node enlargement. CARDIOVASCULAR: S1, S2, muffled. No S3, no S4, RESPIRATORY: Diminished breath sounds at the bases. A few scattered rhonchi and crackles. ABDOMEN: Soft, nontender. No mass palpable. LEGS: No edema, no swelling. NERVOUS SYSTEM: No focal deficits. LABS: WBC 11.2, hemoglobin 14.9, INR 1.5, sodium 134. Troponin 0.058. ASSESSMENT: 1. Significant left flank pain as well as acute left renal infarct from cardiac emboli. 2. Increased WBC, possibly reactive. 3. Atrial fibrillation with fast ventricular rate. 4. Relative hypotension. 5. Hyponatremia. 6. Congestive heart failure with chronic systolic dysfunction, ejection fraction 20- 25% with possible cardiomyopathy. 7. History of thyroid disorder. 8. History of back surgery, DJD. 9. History of nicotine dependence. 10.Severe protein calorie malnutrition with body mass index of 19.5. 11.History of THC. 12.History of noncompliance. 13.Hypomagnesemia. 14.FULL CODE. RECOMMENDATIONS AND DISCUSSION: I recommend to continue current management. Continue with anticoagulation. Will repeat magnesium and we will follow with magnesium and potassium replacement protocols also. Overall prognosis guarded because of multiple complex medical issues. Further recommendations to follow. MMODL / IJN: [id number] /
[2020-09-14] MEDS: KETOROLAC 15 MG/ML 1 ML VIAL IVP SCH ×5 (00:05→23:21)
[2020-09-14 06:46] LABS: Basophils # (A) 0.1 k/uL (0-0.2); Basophils % (A) 1 %; Eosinophils # (A) 0.1 k/uL (0-0.7); Eosinophils % (A) 1 %; HCT 44.2 % (39.0-53.0); HGB 14.3 gm/dL (13.0-17.5); Lymphocytes % (A) 24 %; MCH 30.8 pg (25.0-35.0); MCHC 32.3 g/dL (31.0-37.0); MCV 95.5 fL (80.0-100.0); Mean Platelet Volume 8.9; Monocytes # (A) 0.5 k/uL (0-1.0); Monocytes % (A) 6 %; Neutrophils # (A) 5.8 k/uL (1.3-7.7); Neutrophils % (A) 68 %; Platelet Count 139 k/uL (150-450); RBC 4.63 m/uL (4.30-5.90); RDW 13.7 % (11.5-15.5); WBC 8.6 k/uL (3.8-10.6)
[2020-09-14] MEDS: METOPROLOL TARTRATE 12.5 MG TAB PO SCH (08:27)
[2020-09-14] MEDS: MULTIVITAMINS, THERA 1 EACH TAB PO SCH (08:27)
[2020-09-14] MEDS: CHOLECALCIFEROL 25 MCG (1000 IU) TABLET PO SCH (08:27)
[2020-09-14] MEDS: CALCIUM CARBONATE 500 MG CHEWABLE PO SCH (08:27)
[2020-09-14] MEDS: ASCORBIC ACID 500 MG TAB PO SCH (08:27)
[2020-09-14] MEDS: APIXABAN 5 MG TAB PO SCH ×2 (08:27→20:36)
[2020-09-14] MEDS: PANTOPRAZOLE 40 MG TABLET PO SCH (08:27)
[2020-09-14] MEDS: NICOTINE 14MG/24HR PATCH TRANSDERM SCH (08:28)
[2020-09-14] MEDS ORDERED: METOPROLOL TARTRATE 12.5 MG TAB PO ONE (09:47)
--- NOTE | 2020-09-14 13:07 | P.PN ---
Subjective HISTORY OF PRESENTING ILLNESS This is a pleasant 65-year-old male past medical history significant for paroxysmal atrial fibrillation diagnosed June 2019 was been noncompliant with anticoagulation and beta blockers, chronic nicotine dependence and daily marijuana use. 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 We have been asked to see in consultation for atrial fibrillation. He presented to the hospital with symptoms of left flank pain. Diagnostic imaging revealed abnormal enhancement pattern of the left kidney suggestive of severe pyelonephritis, vasculitis or renal infarct. He has been seen in evaluation by urology who believes this is related to embolism. The patient is seen and examined resting comfortably lying flat in bed in no acute distress. He denies symptoms of chest pain, dizziness or palpitations. He states over the previous few months he has noted worsening exertional shortness of breath as well as orthopnea and PND. There was no EKG obtained on admission however yesterday the nurse ordered 1 secondary to tachycardia on his exam and it revealed atrial fibrillation with rapid ventricular rate. He was placed on telemetry which reveals his heart rate fluctuates between 9940. Chest x-ray reveals basilar scarring. Echocardiogram obtained revealed severely impaired LV systolic function with ejection fraction 20-25%. Compared to echocardiogram obtained in 2019 this is a significant ch anges at that time his LV function was normal. Laboratory data reviewed, WBC on admission 13 repeat today 11.6, hemoglobin 14.9, platelets 148, sodium 134, potassium 4.3, creatinine 0.84, TSH 4.66. He currently takes no daily indications. 09/14/2020 Pt is seen and examined sitting up in bed in no acute distress. He continues to be short of breath. He is in atrial fibrillation with variable ventricular rates. Blood pressure 127/75 heart rate 82 afebrile and maintaining oxygen saturation on room air. PCP decreased his lopressor to 12.5 mg BID from 25 mg. He had a 6 beat run of monomorphic VT this morning. He was symptomatic. PHYSICAL EXAMINATION CONSTITUTIONAL: No apparent distress. Frail. HEENT: Head is normocephalic. Pupils are equal, round. Sclerae anicteric. Mucous membranes of the mouth are moist. No JVD. No carotid bruit. CHEST EXAMINATION: No wheezes or rales. No chest wall tenderness is noted on palpation or with deep breathing. Diminished bilaterally. Faint scattered rho nchi. HEART EXAMINATION: Irregular rate and rhythm. S1, S2 heard. No murmurs, gallops or rub. EXTREMITIES: 2+ peripheral pulses, no lower extremity edema and no calf tenderness. ASSESSMENT Paroxysmal atrial fibrillation with rapid ventricular rate Renal infarct Acute systolic heart failure likely secondary to A. fib with RVR Non-sustained ventricular tachycardia Chronic nicotine dependence Daily marijuana use Frail, BMI 19 Medical noncompliance PLAN Continue eliquis for thromboembolic protection. Increase lopressor to 25 mg BID and continue to increase as tolerated. Consider adding ASHLEY/ARB tomorrow if his blood pressure will tolerate along with a small dose of diuretic. Nurse Practitioner note has been reviewed, I agree with a documented findings and plan of care. Patient was seen and examined. Objective - Vital Signs Vital signs: Vital Signs Temp 97.6 F 09/14/20 05:00 Pulse 82 09/14/20 08:26 Resp 16 09/14/20 08:00 BP 127/75 09/14/20 08:26 Pulse Ox 96 09/14/20 05:00 Intake & Output 09/13/20 09/14/20 09/14/20 18:59 06:59 18:59 Intake Total 1080 360 Balance 1080 360 Intake: Oral 1080 360 Other: Voiding Method Toilet Toilet Toilet # Voids 2 2 1 # Bowel Movements 1 - Labs CBC & Chem 7: 09/14/20 06:05 09/13/20 06:56 Labs: Abnormal Lab Results - Last 24 Hours (Table) 09/14/20 Range/Units 06:05 Plt Count 139 L (150-450) k/uL Microbiology - Last 24 Hours (Table) 09/12/20 10:05 Blood Culture - Preliminary Blood No Growth after 24 hours
[2020-09-14 13:16] LABS: African American GFR (CKD) 102.1 (60.0-200.0); Anion Gap 5.7 mmol/L (4.00-12.00); BUN/Creat Ratio 18.89 Ratio (12.00-20.00); Calcium 8.8 mg/dL (8.7-10.3); Carbon Dioxide 27.3 mmol/L (21.6-31.8); Magnesium 1.5 mg/dL (1.5-2.4); Non-African American GFR(CKD) 88.1 (60.0-200.0)
[2020-09-14] MEDS ORDERED: DILTIAZEM 125 MG in SODIUM CHLORIDE 0.9% 100 ML IV SCH (18:30)
--- NOTE | 2020-09-14 19:41 | P.PN ---
Subjective No acute overnight events, minimal flank pain at this time, denies any gross hematuria. Denies any nausea vomiting. His creatinine is stable at 0.9 Objective - Vital Signs Vital signs: Vital Signs Temp 98.4 F 09/14/20 18:05 Pulse 135 H 09/14/20 18:05 Resp 18 09/14/20 18:05 BP 114/83 09/14/20 18:05 Pulse Ox 96 09/14/20 18:05 Intake & Output 09/14/20 09/14/20 09/15/20 06:59 18:59 06:59 Intake Total 360 1520 Balance 360 1520 Intake: Oral 360 1520 Other: Voiding Method Toilet Toilet # Voids 2 4 - Constitutional General appearance: Present: no acute distress - Gastrointestinal General gastrointestinal: Present: soft. Absent: distended, tenderness - Psychiatric Psychiatric: Present: A&O x's 3 - Labs CBC & Chem 7: 09/14/20 06:05 09/14/20 06:05 Labs: Abnormal Lab Results - Last 24 Hours (Table) 09/14/20 Range/Units 06:05 Plt Count 139 L (150-450) k/uL Microbiology - Last 24 Hours (Table) 09/12/20 10:05 Blood Culture - Preliminary Blood No Growth after 48 hours Assessment and Plan Assessment: 65 yo male admitted to the hospital with flank pain, based on CT review and his normal UA, the finding is more consistent with renal infarct rather than pyelonephritis. I see no stranding around the kidney and his UA is negative. Given his hx of Afib and and wedge shaped abnormal enhancement this is more consistent with renal infarct -Okay for discharge from urology standpoint Can follow-up as an outpatient in 4 weeks, will need a renal bladder ultrasound as an outpatient 6 weeks, to assess for any changes within the kidney
[2020-09-14] MEDS: METOPROLOL TARTRATE 25 MG TAB PO SCH (20:36)
--- NOTE | 2020-09-14 20:46 | PN ---
PROGRESS NOTE DATE OF SERVICE: 09/14/2020 This 65 -year-old gentleman admitted with the renal infarct, and left flank pain, also had atrial fibrillation with fast ventricular rate. Two-D echo showed significantly reduced ejection 25% indicating severe cardiomyopathy. The patient closely monitored at this time. The most recent chest x-ray was reviewed by me. Patient complains of severe tiredness and weakness at this time. The chest x-ray showed possible bibasilar scarring. The blood pressure is also in the low range 100 systolic this morning. Patient also mildly bradycardic. The patient is started on anticoagulation. Cardiology has seen the patient and recommended increase Lopressor 25 mg b.i.d. and consider adding the Scott or ARB tomorrow. The patient needs continuous monitoring in the hospital because of multiple complex medical issues. Past medical history reviewed. REVIEW OF SYSTEMS: CARDIOVASCULAR: As mentioned earlier. RESPIRATORY: As mentioned earlier. GI: As mentioned earlier. : As mentioned earlier. NERVOUS SYSTEM: As mentioned earlier. CURRENT MEDICATIONS: Xanax, Eliquis, vitamin C, Tums, vitamin D, Toradol, Lopressor. Doses reviewed, other medication also reviewed. PHYSICAL EXAM: Alert and oriented times three. Pulse 54, blood pressure is 107/64, respiration 18, temperature 98.7, pulse ox 94% on room air. HEENT: Conjunctivae normal. NECK: No JVD. CARDIOVASCULAR is S1, S2 irregular. RESPIRATION: A few scattered rhonchi. ABDOMEN: Soft, minimal diffuse discomfort on the left side of the abdomen. Abdomen soft, nontender. NERVOUS SYSTEM: Higher functions as mentioned earlier. Moves all four limbs. No focal deficits. SKIN: No ulcer, no rash and no bleeding. LYMPHATICS: No lymph nodes palpable in the neck, axillae or groin. JOINTS: No active deforming arthropathy. LABS: WBC 8.2, platelets 130. Sodium 134, 1.5. Troponin 0.058. ASSESSMENT: 1. Left flank pain as well as acute left renal infarct from cardiac emboli. 2. Atrial fibrillation with fast ventricular rate. 3. Possible congestive heart failure with acute on chronic systolic dysfunction ejection fraction 20-25 percent with possible cardiomyopathy, possibly tachycardia induced cardiomyopathy. 4. Relative hypotension. 5. Atrial fibrillation with fast ventricular rate. 6. Increased WBC possibly reactive. 7. Hyponatremia. 8. Troponin 0.058, of undetermined significance. 9. History of neck surgery, degenerative joint disease. 10.History of thyroid disorder. 11.History of nicotine dependence. 12.Severe protein calorie malnutrition with body mass index of 19.5. 13.History of THC. 14.History of noncompliance. 15.Hypomagnesemia. 16.FULL CODE. RECOMMENDATIONS AND DISCUSSION: In this 65-year-old gentleman who presented with multiple complex medical issues, we will monitor the patient closely, continue the current medications, management and symptomatic treatment. I recommend to continue with anticoagulation, beta blockers. Monitor blood pressure closely. We will monitor fluid/electrolyte balance closely. Increase ambulation. Orthostatic vitals. Prognosis guarded. Further recommendations to follow. I also discussed with the case management team from [facility] and this patient definitely needs to be admitted to the hospital for more than 2 nights for elucidation and treatment of the above mentioned multiple medical problems. This is not a simple case of left renal infarct. There is no way the patient could be discharged without taking care of the above mentioned complex medical issues. The patient should be admitted as a full inpatient admit because of the multiple complex medical issues including extremely low ejection fraction. Patient is complaining of severe symptomatic weakness and problem with fast ventricular rate as well as elevated troponin at this time. Once again, the prognosis extremely guarded. I will follow the patient closely with Cardiology and once again the patient should not be discharged currently, and the patient will require inpatient treatment with a full admit status for the above- mentioned complex medical issues. The prognosis remains extremely guarded. TANNER / ANAIS: [id number] / MTDD
[2020-09-15] MEDS: PANTOPRAZOLE 40 MG TABLET PO SCH (06:58)
[2020-09-15] MEDS: KETOROLAC 15 MG/ML 1 ML VIAL IVP SCH (06:58)
[2020-09-15] MEDS: MULTIVITAMINS, THERA 1 EACH TAB PO SCH (09:19)
[2020-09-15] MEDS: CALCIUM CARBONATE 500 MG CHEWABLE PO SCH (09:19)
[2020-09-15] MEDS: METOPROLOL TARTRATE 25 MG TAB PO SCH (09:19)
[2020-09-15] MEDS: APIXABAN 5 MG TAB PO SCH ×2 (09:19→20:21)
[2020-09-15] MEDS: ASCORBIC ACID 500 MG TAB PO SCH (09:19)
[2020-09-15] MEDS: CHOLECALCIFEROL 25 MCG (1000 IU) TABLET PO SCH (09:19)
[2020-09-15] MEDS: NICOTINE 14MG/24HR PATCH TRANSDERM SCH (09:20)
[2020-09-15] MEDS: SPIRONOLACTONE 25 MG TAB PO SCH (12:16)
--- NOTE | 2020-09-15 12:29 | PN ---
PROGRESS NOTE Mr. Mark is a 65-year-old male who presented with symptoms of progressive dyspnea, history of paroxysmal atrial fibrillation, history of noncompliance with chronic tobacco and marijuana use, who presented with flank pain and dyspnea. He was noted to be in atrial fibrillation with evidence of significant impairment of the left ventricular systolic function compared with his prior testing. He is feeling better today. His breathing is better. He denies any chest pain. He denies any dizziness or palpitation. He denies any nausea. He had some episodes of rapid ventricular response and continues to be on Eliquis 5 mg twice a day, IV Cardizem, metoprolol tartrate 25 mg twice a day. PHYSICAL EXAMINATION: VITAL SIGNS: Blood pressure 123/80 with a heart in 70s. LUNGS: Decreased air exchange, no wheezes. HEART: Irregular regular S1, S2. No S3. No rub. ABDOMEN: Soft and nontender. EXTREMITIES: No edema. LAB DATA: Lab data revealed BUN and creatinine of 17 and 0.9, hemoglobin of 14.3. His NT proBNP was 7330. IMPRESSION: 1. Atrial fibrillation with rapid ventricular response, improved. 2. Severe cardiomyopathy of unknown etiology. 3. Chronic tobacco and marijuana use. 4. Evidence of congestive heart failure with systolic dysfunction. 5. Episode of nonsustained ventricular tachycardia. RECOMMENDATION: From the cardiac standpoint, I will stop the IV Cardizem. I will increase the dose of beta garrett, start a low-dose of ASHLEY inhibitor as well as Aldactone. We will follow his renal function. Increase his activity. Patient down the road will require further evaluation for the etiology of his cardiomyopathy including cardiac catheterization. Depending on his progress, further recommendation will be made. MMODL / IJN: [id number] /
[2020-09-15] MEDS ORDERED: METOPROLOL TARTRATE 50 MG TAB PO STA (17:33)
--- NOTE | 2020-09-15 17:47 | PN ---
PROGRESS NOTE DATE OF SERVICE: 09/15/2020 This 65-year-old gentleman was admitted after left flank pain with left renal infarct. Also, atrial ablation with fast ventricular rate. Patient is monitored on the cardiology unit at this time. The patient is feeling slightly better today. The patient is on beta blockers also. The patient also had episodes of nonsustained ventricular tachycardia. Medication adjusted. No chest pain. No palpitations. No fever. PHYSICAL EXAMINATION: Alert and oriented x3. Pulse 84, blood pressure 115/74, respirations 16, temperature 98 degrees, pulse ox 94% on room air. HEENT: Conjunctivae normal. Oral mucosa moist. NECK: No jugular venous distention. No lymph node enlargement. CARDIOVASCULAR: S1, S2, muffled. No S3, no S4, RESPIRATORY: Diminished breath sounds at the bases. No rhonchi, no crackles. ABDOMEN: Soft, nontender. NERVOUS SYSTEM: No focal deficits. LABS: Platelets are 139. Other labs are noted. Troponin 0.058. BNP is 7 330. ASSESSMENT: 1. Left flank pain as well as acute left renal infarct from cardiac emboli. 2. Atrial fibrillation with fast ventricular rate, paroxysmal. 3. Possible congestive heart failure with acute on chronic systolic dysfunction, ejection fraction 20-25% with possible cardiomyopathy, possibly tachycardia associated cardiomyopathy. 4. Mild thrombocytopenia. 5. Relative hypotension. 6. Atrial fibrillation with fast ventricular rate. 7. Increased WBC, possibly reactive. 8. Hyponatremia. 9. Troponin 0.05 of indeterminate significance. 10.History of neck surgery, DJD. 11.History of thyroid disorder. 12.History of nicotine dependence. 13.Severe protein-calorie malnutrition, BMI of 19.5. 14.History of THC. 15.History of noncompliance. 16.Hypomagnesemia. 17.FULL CODE. RECOMMENDATIONS: Recommend to continue current medications, continue symptomatic treatment. TSH is normal. Other than that, troponins are noted. Closely follow with Cardiology. Continue the beta blockers. Continue with anticoagulants. The patient to go for the cardiac workup per Cardiology as an outpatient. Aldactone also been added. Will repeat labs tomorrow and continue to monitor. The prognosis is guarded. Further recommendations to follow. MMODL / IJN: [id number] /
[2020-09-15] MEDS: METOPROLOL TARTRATE 50 MG TAB PO SCH (20:21)
[2020-09-16] MEDS: HYDROcodone/APAP 5-325MG 1 EACH TAB PO PRN ×2 (04:53→12:39)
[2020-09-16] MEDS: PANTOPRAZOLE 40 MG TABLET PO SCH (06:30)
[2020-09-16 08:40] LABS: Basophils # (A) 0.1 k/uL (0-0.2); Basophils % (A) 1 %; Eosinophils # (A) 0.1 k/uL (0-0.7); Eosinophils % (A) 2 %; HCT 42.3 % (39.0-53.0); HGB 14.3 gm/dL (13.0-17.5); Lymphocytes # (A) 1.6 k/uL (1.0-4.8); Lymphocytes % (A) 23 %; MCH 31.7 pg (25.0-35.0); MCHC 33.9 g/dL (31.0-37.0); MCV 93.3 fL (80.0-100.0); Mean Platelet Volume 8.3; Monocytes # (A) 0.4 k/uL (0-1.0); Monocytes % (A) 6 %; Neutrophils # (A) 4.7 k/uL (1.3-7.7); Neutrophils % (A) 67 %; Platelet Count 173 k/uL (150-450); RBC 4.53 m/uL (4.30-5.90); RDW 13.2 % (11.5-15.5)
[2020-09-16] MEDS: CALCIUM CARBONATE 500 MG CHEWABLE PO SCH (08:41)
[2020-09-16] MEDS: SPIRONOLACTONE 25 MG TAB PO SCH (08:41)
[2020-09-16] MEDS: CHOLECALCIFEROL 25 MCG (1000 IU) TABLET PO SCH (08:41)
[2020-09-16] MEDS: APIXABAN 5 MG TAB PO SCH ×2 (08:41→21:05)
[2020-09-16] MEDS: ASCORBIC ACID 500 MG TAB PO SCH (08:41)
[2020-09-16] MEDS: METOPROLOL TARTRATE 50 MG TAB PO SCH ×3 (08:41→21:05)
[2020-09-16] MEDS: NICOTINE 14MG/24HR PATCH TRANSDERM SCH (08:42)
[2020-09-16] MEDS: MULTIVITAMINS, THERA 1 EACH TAB PO SCH (08:46)
[2020-09-16 08:58] LABS: African American GFR (CKD) >90 (>60 ml/min/1.73 sqM); Anion Gap 3 mmol/L; Blood Urea Nitrogen 17 mg/dL (9-20); Carbon Dioxide 31 mmol/L (22-30); Chloride 103 mmol/L (98-107); Glucose 81 mg/dL (74-99); Non-African American GFR(CKD) 89 (>60 ml/min/1.73 sqM); Potassium 4.7 mmol/L (3.5-5.1); Sodium 137 mmol/L (137-145)
--- NOTE | 2020-09-16 11:15 | PN ---
PROGRESS NOTE Mr. Mark is 65-year-old male who presented with symptoms of progressive dyspnea and was noted to have evidence of severe cardiomyopathy, worsening compared to before. He is complaining of some flank pain but no chest pain. His breathing continues to be difficult the time. He denies any dizziness or palpitation. He is having episode of rapid ventricular response with physical activity. He denies any syncope. He has not been very active physically. He continues to be at this time on Eliquis 5 mg twice a day, lisinopril 2.5 mg daily, metoprolol tartrate 50 mg twice a day, spironolactone 25 mg daily. PHYSICAL EXAMINATION: Blood pressure 116/70 with a heart rate in 70s. LUNGS: Clear. HEART: Irregularly irregular S1, S2. No S3 with systolic murmur. No diastolic murmur. ABDOMEN: Soft and nontender. EXTREMITIES: No edema. LAB DATA: Lab data revealed BUN and creatinine 17 and 0.8, potassium 4.7, hemoglobin 14.3. IMPRESSION: 1. Severe cardiomyopathy of unknown etiology. 2. Atrial fibrillation, anticoagulation initiated. 3. Prior history of noncompliance. 4. Chronic tobacco use. 5. Episode of nonsustained ventricular tachycardia. RECOMMENDATION: I will increase the dose of his lisinopril. Continue the rest of his medical regimen. Increase his level of activity. The patient would require coronary angiography down the road because of his cardiomyopathy, once he is stabilized. MMODL / IJN: [id number] /
--- NOTE | 2020-09-16 21:24 | PN ---
PROGRESS NOTE DATE OF SERVICE: 09/16/2020 This 65-year-old gentleman admitted with left renal infarct also had atrial fibrillation. The patient is on anticoagulations. No chest pain. No palpitations. Medications were adjusted. No fever. No cough. PHYSICAL EXAMINATION: Alert and oriented times three. Pulse 88, blood pressure 116/83, respiration 18. Temperature 98.4, pulse ox 97% on room air. HEENT: Conjunctivae normal. NECK: No JVD. CARDIOVASCULAR: S1, S2 muffled. RESPIRATION: Breath sounds diminished in the bases. No rhonchi. No crackles. ABDOMEN: Soft, nontender. NERVOUS SYSTEM: No focal deficits. LABORATORY DATA: CBC, BMP noted. ASSESSMENT: 1. Left flank pain as well as acute left renal infarct from cardiac emboli, present on admission. 2. Atrial fibrillation with fast ventricular rate, paroxysmal. 3. Congestive heart failure, acute exacerbation, acute on chronic systolic dysfunction. Ejection fraction 20-25 percent with possible cardiomyopathy of undetermined etiology. 4. Mild thrombocytopenia. 5. Relative hypotension. 6. Atrial fibrillation with fast ventricular rate. 7. Increased WBC possibly reactive. 8. Hyponatremia. 9. Troponin 0.05 indeterminate significance. 10.History of neck surgery, degenerative joint disease. 11.History of thyroid disorder. 12.History of nicotine dependence. 13.History of noncompliance. 14.Severe protein calorie malnutrition, BMI of 19.5. 15.History of THC. 16.Hypomagnesemia. 17.FULL CODE. RECOMMENDATIONS AND DISCUSSION: Recommend to continue current medications, management. Continue with beta blockers. The patient is on Metoprolol 50 mg p.o. t.i.d. Patient is also on Eliquis. Increase ambulation. If the patient is stable and cleared by Cardiology, possible discharge home in the next 24 hours. Overall prognosis extremely guarded because of the multiple complex medical issues as mentioned earlier. MMODL / IJN: [id number] /
[2020-09-17] MEDS: PANTOPRAZOLE 40 MG TABLET PO SCH (06:30)
[2020-09-17] MEDS: SPIRONOLACTONE 25 MG TAB PO SCH (08:53)
[2020-09-17] MEDS: CHOLECALCIFEROL 25 MCG (1000 IU) TABLET PO SCH (08:53)
[2020-09-17] MEDS: ASCORBIC ACID 500 MG TAB PO SCH (08:53)
[2020-09-17] MEDS: NICOTINE 14MG/24HR PATCH TRANSDERM SCH (08:54)
[2020-09-17] MEDS: METOPROLOL TARTRATE 50 MG TAB PO SCH (08:54)
[2020-09-17] MEDS: MULTIVITAMINS, THERA 1 EACH TAB PO SCH (08:54)
[2020-09-17] MEDS: CALCIUM CARBONATE 500 MG CHEWABLE PO SCH (08:54)
[2020-09-17] MEDS: APIXABAN 5 MG TAB PO SCH ×2 (08:54→21:17)
[2020-09-17 11:56] LABS: African American GFR (CKD) >90 (>60 ml/min/1.73 sqM); Anion Gap 4 mmol/L; Blood Urea Nitrogen 17 mg/dL (9-20); Calcium 9.3 mg/dL (8.4-10.2); Carbon Dioxide 32 mmol/L (22-30); Chloride 100 mmol/L (98-107); Glucose 98 mg/dL (74-99); Non-African American GFR(CKD) 90 (>60 ml/min/1.73 sqM); Potassium 4.6 mmol/L (3.5-5.1); Sodium 136 mmol/L (137-145)
[2020-09-17] MEDS ORDERED: METOPROLOL TARTRATE 25 MG TAB PO STA (12:53)
--- NOTE | 2020-09-17 12:59 | P.PN ---
Subjective Progress Note Date: 09/17/20 HISTORY OF PRESENT ILLNESS: This is a pleasant 65-year-old male past medical history significant for paroxysmal atrial fibrillation diagnosed June 2019 was been noncompliant with anticoagulation and beta blockers, chronic nicotine dependence and daily marijuana use. 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 We have been asked to see in consultation for atrial fibrillation. He presented to the hospital with symptoms of left flank pain. Diagnostic imaging revealed abnormal enhancement pattern of the left kidney suggestive of severe pyelonephritis, vas culitis or renal infarct. He has been seen in evaluation by urology who believes this is related to embolism. The patient is seen and examined resting comfortably lying flat in bed in no acute distress. He denies symptoms of chest pain, dizziness or palpitations. He states over the previous few months he has noted worsening exertional shortness of breath as well as orthopnea and PND. There was no EKG obtained on admission however yesterday the nurse ordered 1 secondary to tachycardia on his exam and it revealed atrial fibrillation with rapid ventricular rate. He was placed on telemetry which reveals his heart rate fluctuates between 9940. Chest x-ray reveals basilar scarring. Echocardiogram obtained revealed severely impaired LV systolic function with ejection fraction 20-25%. Compared to echocardiogram obtained in 2019 this is a significant changes at that time his LV function was normal. Laboratory data reviewed, WBC on admission 13 repeat today 11.6, hemoglobin 14.9, platelets 148, sodium 134, potassium 4.3, creatinine 0.84, TSH 4.66. He currently takes no daily indicat ions. 09/14/2020 Pt is seen and examined sitting up in bed in no acute distress. He continues to be short of breath. He is in atrial fibrillation with variable ventricular rates. Blood pressure 127/75 heart rate 82 afebrile and maintaining oxygen saturation on room air. PCP decreased his lopressor to 12.5 mg BID from 25 mg. He had a 6 beat run of monomorphic VT this morning. He was symptomatic. 09/17/2020 Patient examined this morning at the bedside. Patient remains in atrial fibrill ation. Heart rate 90s at rest but 120s with minimal exertion. He denies chest pain or pressure. Denies shortness of breath. Patients lisinopril was increased to BID yesterday. His blood pressure this morning is borderline hypotensive with a systolic in the 90s. PHYSICAL EXAM: VITAL SIGNS: Reviewed. GENERAL: Well-developed in no acute distress. NECK: Supple. No JVD or thyromegaly LUNGS: Respirations even and unlabored. Lungs diminished bilaterally. HEART: Irregular rate and rhythm. S1 and S2 heard. EXTREMITIES: Normal range of motion. No clubbing or cyanosis. Peripheral pulses intact. No lower extremity edema ASSESSMENT: Paroxysmal atrial fibrillation with rapid ventricular rate Renal infarct Acute systolic heart failure likely secondary to A. fib with RVR Non-sustained ventricular tachycardia Chronic nicotine dependence Daily marijuana use Frail, BMI 19 Medical noncompliance PLAN: Continue anticoagulation with Eliquis Increase metoprolol to 75mg BID Decrease lisinopril to daily dosing instead of twice a day to allow for increased dose of metoprolol Monitor blood pressure Continue telemetry monitoring Patient will require cardiac cath in the future to rule out CAD secondary to cardiomyopathy. Timing to be determined. Further recommendations pending patient course Nurse practitioner note has been reviewed by physician. Signing provider agrees with the documented findings, assessment, and plan of care. Objective - Vital Signs Vital signs: Vital Signs Temp 98.2 F 09/17/20 12:00 Pulse 92 09/17/20 12:00 Resp 18 09/17/20 12:00 BP 119/75 09/17/20 12:00 Pulse Ox 95 09/17/20 12:00 Intake & Output 09/16/20 09/17/20 09/17/20 18:59 06:59 18:59 Intake Total 2160 180 Output Total 450 400 600 Balance 1710 -400 -420 Weight 68.6 kg Intake: Oral 2160 180 Output: Urine 450 400 600 Other: Voiding Method Urinal Toilet Toilet # Voids 6 1 - Labs CBC & Chem 7: 09/16/20 07:47 09/17/20 10:52 Labs: Abnormal Lab Results - Last 24 Hours (Table) 09/17/20 Range/Units 10:52 Sodium 136 L (137-145) mmol/L Carbon Dioxide 32 H (22-30) mmol/L Microbiology - Last 24 Hours (Table) 09/12/20 10:05 Blood Culture - Preliminary Blood No Growth after 96 hours
[2020-09-17] MEDS ORDERED: METOPROLOL TARTRATE 50 MG TAB PO STA (13:59)
[2020-09-17] MEDS: METOPROLOL TARTRATE 25 MG TAB PO SCH ×2 (17:18→21:17)
--- NOTE | 2020-09-17 20:19 | PN ---
PROGRESS NOTE DATE OF SERVICE: 09/17/2020 This 65-year-old gentleman who was admitted with left flank pain and left renal infarct had atrial fibrillation. The patient was started on anticoagulation at this time. The patient's heart rate is fluctuating and Cardiology following the patient closely. Medications adjusted. Eliquis is being continued at this time. Metoprolol has been increased to 75 mg p.o. b.i.d. by Cardiology. No chest pain. No palpitations. No fever. PHYSICAL EXAMINATION: Alert and oriented times three. Pulse 103. Blood pressure 135/83, respiration 16, temperature 97.8, pulse ox 94% on room air. HEENT: Conjunctivae normal. NECK: No JVD. RESPIRATION: Breath sounds diminished in the bases. A few scattered rhonchi. ABDOMEN: Soft. NERVOUS SYSTEM: No focal deficits. LABS: CBC within normal limits. Sodium 136. ASSESSMENT: 1. Left ankle pain as well as acute left renal infarct from cardiac emboli present on admission. 2. Atrial fibrillation with fast ventricular rate paroxysmal. 3. Congestive heart failure, acute exacerbation with acute on chronic systolic dysfunction, ejection fraction 20-25% with possible cardiomyopathy of undetermined etiology. 4. Mild thrombocytopenia. 5. Relative hypotension. 6. Atrial fibrillation with fast ventricular rate. 7. Increased WBC possibly reactive. 8. Hyponatremia. 9. Troponin 0.05, indeterminate significance. 10.History of neck surgery, degenerative joint disease. 11.History of thyroid disorder. 12.History of nicotine dependence. 13.History of noncompliance. 14.Severe protein calorie malnutrition, BMI of 19.5. 15.History of THC. 16.Hypomagnesemia. 17.FULL CODE. RECOMMENDATIONS AND DISCUSSION: Recommend to continue current medications, management and symptomatic treatment. Continue with beta blockers. Continue anticoagulants. Otherwise, closely follow with Cardiology. Once cardiology has cleared the patient, patient could be discharged and recommend close followup in the outpatient setting also. Further recommendations to follow. ENT evaluation as outpatient also recommend because of the right ear pain. MMODL / IJN: [id number] /
[2020-09-18 04:50] VITALS: TEMP 97.5
[2020-09-18] MEDS: PANTOPRAZOLE 40 MG TABLET PO SCH (06:44)
[2020-09-18] MEDS: ASCORBIC ACID 500 MG TAB PO SCH (09:17)
[2020-09-18] MEDS: APIXABAN 5 MG TAB PO SCH (09:17)
[2020-09-18] MEDS: METOPROLOL TARTRATE 25 MG TAB PO SCH (09:17)
[2020-09-18] MEDS: SPIRONOLACTONE 25 MG TAB PO SCH (09:18)
[2020-09-18] MEDS: NICOTINE 14MG/24HR PATCH TRANSDERM SCH ×2 (09:18→09:21)
[2020-09-18] MEDS: CHOLECALCIFEROL 25 MCG (1000 IU) TABLET PO SCH (09:18)
[2020-09-18] MEDS: CALCIUM CARBONATE 500 MG CHEWABLE PO SCH (09:18)
[2020-09-18] MEDS: MULTIVITAMINS, THERA 1 EACH TAB PO SCH (09:18)
[2020-09-18 09:24] VITALS: PULSE 60; RESP 16
[2020-09-18 10:22] VITALS: BMI 18.7
--- NOTE | 2020-09-18 11:24 | P.PN ---
Subjective Progress Note Date: 09/18/20 HISTORY OF PRESENT ILLNESS: This is a pleasant 65-year-old male past medical history significant for paroxysmal atrial fibrillation diagnosed June 2019 was been noncompliant with anticoagulation and beta blockers, chronic nicotine dependence and daily marijuana use. He does not follow in the office with a operations tech. We have been asked to see in consultation for atrial fibrillation. He presented to the hospital with symptoms of left flank pain. Diagnostic imaging revealed abnormal enhancement pattern of the left kidney suggestive of severe pyelonephritis, vas culitis or renal infarct. He has been seen in evaluation by urology who believes this is related to embolism. The patient is seen and examined resting comfortably lying flat in bed in no acute distress. He denies symptoms of chest pain, dizziness or palpitations. He states over the previous few months he has noted worsening exertional shortness of breath as well as orthopnea and PND. There was no EKG obtained on admission however yesterday the nurse ordered 1 secondary to tachycardia on his exam and it revealed atrial fibrillation with rapid ventricular rate. He was placed on telemetry which reveals his heart rate fluctuates between 9940. Chest x-ray reveals basilar scarring. Echocardiogram obtained revealed severely impaired LV systolic function with ejection fraction 20-25%. Compared to echocardiogram obtained in 2019 this is a significant changes at that time his LV function was normal. Laboratory data reviewed, WBC on admission 13 repeat today 11.6, hemoglobin 14.9, platelets 148, sodium 134, potassium 4.3, creatinine 0.84, TSH 4.66. He currently takes no daily indicat ions. 09/14/2020 Pt is seen and examined sitting up in bed in no acute distress. He continues to be short of breath. He is in atrial fibrillation with variable ventricular rates. Blood pressure 127/75 heart rate 82 afebrile and maintaining oxygen saturation on room air. PCP decreased his lopressor to 12.5 mg BID from 25 mg. He had a 6 beat run of monomorphic VT this morning. He was symptomatic. 09/17/2020 Patient examined this morning at the bedside. Patient remains in atrial fibrill ation. Heart rate 90s at rest but 120s with minimal exertion. He denies chest pain or pressure. Denies shortness of breath. Patients lisinopril was increased to BID yesterday. His blood pressure this morning is borderline hypotensive with a systolic in the 90s. 09/18/2020 Patient examined this morning at the bedside. Patient remains in atrial fibrillation. Heart rates are better controlled after adjustment and his beta garrett yesterday. Blood pressure 115/72. Patient denies chest pain or pre ssure. He denies shortness of breath. He is hoping to be discharged home today. PHYSICAL EXAM: VITAL SIGNS: Reviewed. GENERAL: Well-developed in no acute distress. NECK: Supple. No JVD or thyromegaly LUNGS: Respirations even and unlabored. Lungs diminished bilaterally. HEART: Irregular rate and rhythm. S1 and S2 heard. EXTREMITIES: Normal range of motion. No clubbing or cyanosis. Peripheral pulses intact. No lower extremity edema ASSESSMENT: Paroxysmal atrial fibrillation with rapid ventricular rate Renal infarct Acute systolic heart failure likely secondary to A. fib with RVR Non-sustained ventricular tachycardia Chronic nicotine dependence Daily marijuana use Frail, BMI 19 Medical noncompliance PLAN: Continue anticoagulation with Eliquis Continue current cardiac medications Patient will require cardiac cath in the future to rule out CAD secondary to cardiomyopathy. This may be completed on an outpatient basis Patient is stable for discharge from a cardiac standpoint. He is to follow up on an outpatient basis with Dr. Ashley Nurse practitioner note has been reviewed by physician. Signing provider agrees with the documented findings, assessment, and plan of care. Objective - Vital Signs Vital signs: Vital Signs Temp 97.5 F L 09/18/20 04:25 Pulse 60 09/18/20 08:00 Resp 16 09/18/20 08:00 BP 115/72 09/18/20 08:00 Pulse Ox 93 L 09/18/20 08:00 Intake & Output 09/17/20 09/18/20 09/18/20 18:59 06:59 18:59 Intake Total 660 Output Total 600 1710 Balance 60 -1710 Weight 67.9 kg 67.9 kg Intake: Oral 660 Output: Urine 600 1710 Other: Voiding Method Toilet Urinal Urinal # Voids 1 1 - Labs CBC & Chem 7: 09/16/20 07:47 09/17/20 10:52 Labs: Abnormal Lab Results - Last 24 Hours (Table) 09/17/20 Range/Units 10:52 Sodium 136 L (137-145) mmol/L Carbon Dioxide 32 H (22-30) mmol/L Microbiology - Last 24 Hours (Table) 09/12/20 10:05 Blood Culture - Preliminary Blood No Growth after 120 hours
[2020-09-18 13:01] VITALS: BP 97/39
--- NOTE | 2020-09-19 09:14 | P.DS ---
Providers Date of admission: 09/11/20 12:24 Expected date of discharge: 09/18/20 Attending physician: Georges Grossman Consults: 09/12/20 10:29 Consult Physician Routine Consulting Provider: Cesar Ashley Consult Reason/Comments: Clots in left kidney Do you want consulting provider notified?: Already Contacted 09/12/20 14:45 Consult Physician Routine Consulting Provider: Elieser Mejia Consult Reason/Comments: kidney,flank pain Do you want consulting provider notified?: Already Contacted Primary care physician: Georges Grossman Hospital Course: Final diagnosis Left ankle pain as well as acute left renal infarct from cardiac emboli, present on admission Atrial fibrillation with fast ventricular rate, paroxysmal congestive heart failure acute exacerbation with acute on chronic systolic dysfunction, ejection fraction 20-25% with possible cardiomyopathy of undetermined etiology Mild thrombocytopenia Relative hypotension Atrial fibrillation with fast ventricular rate Increased WBC, possibly reactive Hyponatremia Troponin 0.05 of indeterminate significance History of neck surgery, degenerative joint disease history of thyroid disorder History of nicotine dependence history of noncompliance Severe protein calorie malnutrition with a BMI of 19.5 history of THC hypomagnesemia full code Discharge disposition Patient is being discharged in a stable condition with guarded prognosis to home. Patient will follow-up with Dr. Liu in the outpatient setting upon discharge. Patient is to also follow-up with cardiology Dr. Ashley, along with urology in the outpatient setting. Total time taken is greater than 35 minutes. Hospital course This is a 65-year-old male who was admitted with left flank pain and left renal infarct and had atrial fibrillation with fast ventricular rate and was started on anticoagulation and being closely monitored. Cardiology following closely and recommending following up with Dr. Ashley in the outpatient setting as discussed and scheduled. Multiple medications including Lopressor, lisinopril, Aldactone, and Eliquis has been started. Patient instructed to follow-up with primary care provider upon discharge. Prescription also provided for repeat labs to monitor CBC and BMP closely. Currently no reports of chest pain, shortness of breath, or palpitations. Patient is afebrile. No reports of nausea or vomiting and patient is tolerating diet. Patient will be discharged home today. On exam vital signs are stable. Cardio S1, S2 are muffled. Respiratory system shows diminished breath sounds at the bases with no wheezing or rhonchi noted. Abdomen is soft and nontender. Nervous system shows no focal deficit. Please refer to medication reconciliation sheet for a list of medications. Patient Condition at Discharge: Stable Plan - Discharge Summary New Discharge Prescriptions: New Metoprolol Tartrate [Lopressor] 75 mg PO TID 30 Days #90 tab lisinopriL [Zestril] 2.5 mg PO DAILY 30 Days #30 tab Spironolactone [Aldactone] 25 mg PO DAILY 30 Days #30 tab Apixaban [Eliquis] 5 mg PO BID 30 Days #60 tab Continue Multivitamins, Thera [Multivitamin (formulary)] 1 tab PO DAILY Cholecalciferol [Vitamin D3 (25 Mcg = 1000 Iu)] 5,000 unit PO DAILY Ascorbic Acid [Vitamin C] 500 mg PO DAILY Calcium Carbonate [Calcium] 600 mg PO DAILY Discharge Medication List Cholecalciferol [Vitamin D3 (25 Mcg = 1000 Iu)] 5,000 unit PO DAILY 06/29/19 [History] Multivitamins, Thera [Multivitamin (formulary)] 1 tab PO DAILY 06/29/19 [History] Ascorbic Acid [Vitamin C] 500 mg PO DAILY 09/11/20 [History] Calcium Carbonate [Calcium] 600 mg PO DAILY 09/11/20 [History] Apixaban [Eliquis] 5 mg PO BID 30 Days #60 tab 09/18/20 [Rx] Metoprolol Tartrate [Lopressor] 75 mg PO TID 30 Days #90 tab 09/18/20 [Rx] Spironolactone [Aldactone] 25 mg PO DAILY 30 Days #30 tab 09/18/20 [Rx] lisinopriL [Zestril] 2.5 mg PO DAILY 30 Days #30 tab 09/18/20 [Rx] Follow up Appointment(s)/Referral(s): Kahlil Liu MD [STAFF PHYSICIAN] - 09/24/20 1:40 pm Elieser Mejia MD [STAFF PHYSICIAN] - 11/06/20 9:00 am Anurag Hanley MD [STAFF PHYSICIAN] - 1 Week (office is closed -september 23.) Cesar Ashley MD [STAFF PHYSICIAN] - 1 Week (Office will call you with an appt.) Ambulatory/Diagnostic Orders: Complete Blood Count w/diff [LAB.AMB] Time Frame: 2 Days, Location: None Selected Patient Instructions/Handouts: A-fib (Atrial Fibrillation) (DC) Activity/Diet/Wound Care/Special Instructions: Dr. Salazar cardiology to clear before discharge Activity Limited until follow-up Follow-up with cardiology as discussed Follow-up with primary care provider upon discharge Follow-up with urology Dr. mejia outpatient in 4 weeks Follow-up with ENT Dr. Hanley outpatient Repeat labs in 2-3 days continue current medications Avoid tobacco use Continue with heart healthy diet Discharge Disposition: HOME SELF-CARE
== END 2020-09-18 13:52 | disposition home or self-care (01) | DRG 698 ==
LOC: EC 09:48 → 5NMEDONC 12:24 → 3SCARD 09-14 19:16
PROVIDERS: ADMIT Hospitalist; ATTEND Hospitalist
DX: N28.0 Ischemia and infarction of kidney (principal); I50.23 Acute on chronic systolic (congestive) heart failure; E43 Unspecified severe protein-calorie malnutrition; E87.1 Hypo-osmolality and hyponatremia; E87.2 Acidosis; I42.9 Cardiomyopathy, unspecified; I47.2 Ventricular tachycardia; Z68.1 Body mass index [BMI] 19.9 or less, adult; I24.0 Acute coronary thrombosis not resulting in myocardial infarction; I48.0 Paroxysmal atrial fibrillation; D69.6 Thrombocytopenia, unspecified; E83.42 Hypomagnesemia; F17.210 Nicotine dependence, cigarettes, uncomplicated; R31.9 Hematuria, unspecified; I95.89 Other hypotension; Z79.01 Long term (current) use of anticoagulants; Z79.899 Other long term (current) drug therapy; Z80.9 Family history of malignant neoplasm, unspecified; Z82.0 Family history of epilepsy and other diseases of the nervous system; Z91.14 Patient's other noncompliance with medication regimen; Z91.19 Patient's noncompliance with other medical treatment and regimen; R77.8 Other specified abnormalities of plasma proteins; Z20.822 Contact with and (suspected) exposure to COVID-19
CPT/HCPCS: 36415; 71045; 74177; 80048; 80053; 81001; 82150; 82272; 83605; 83690; 83735; 83880; 84443; 84484; 85025; 85610; 85652; 85730; 86140; 87040; 87635; 93306; 96361; 96374; 96375; 99285

== ENCOUNTER 2020-11-08 07:52 | Day surgery (SDC) | payer MEDICARE ==
[2020-11-05 15:57] VITALS: BMI 18.7
[~2020-11-08 07:52] MED LIST: LACTATED RINGERS 1,000 ML IV SCH
[2020-11-08 08:25] VITALS: TEMP 96.5
[2020-11-08] MEDS ORDERED: PROPOFOL 10 MG/ML 20 ML VIAL IV ONE (09:00)
--- NOTE | 2020-11-08 09:34 | P.PCN ---
Date of Procedure: 11/08/20 Description of Procedure: BRIEF HISTORY: Patient is a 65-year-old male presenting for outpatient colonoscopy for screening for malignant neoplasm of the colon. Patient reports last colonoscopy 17 years ago. No change in bowel habits. No family history of colon cancer. PROCEDURE PERFORMED: Colonoscopy with polypectomy. PREOPERATIVE DIAGNOSIS: Screening for malignant neoplasm colon, he states last colonoscopy was 17 years ago. ESTIMATED BLOOD LOSS: Minimal. IV sedation per Anesthesia. PROCEDURE: After informed consent was obtained, the patient, was brought into the endoscopy unit. IV sedation was administered by Anesthesia under continuous monitoring. Digital rectal examination was normal. Initially the Olympus CF-190 flexible video colonoscope was then inserted in the rectum, gradually advanced into the cecum without any difficulty. Careful examination was performed as the scope was gradually being withdrawn. Ileocecal valve and the appendiceal orifice were visualized and appeared normal. Prep was excellent. Mucosa of the cecum, ascending colon, transverse colon, descending colon, sigmoid colon, and rectum appeared normal, but was somewhat redundant. A diminutive 2 mm ascending colon polyp was removed cold forcep polypectomy. Retroflexion was performed in the rectum and no lesions were seen and internal hemorrhoids were noted. The patient tolerated the procedure well. IMPRESSION: Diminutive ascending colon polyp removed with cold forcep polypectomy. Redundant colon. Internal hemorrhoids. RECOMMENDATIONS: Findings of this examination were discussed with the patient and his family. Okay to resume diet. Okay to resume medications. Await pathology from polypectomy. Recommend repeat colonoscopy in 7 years pending pathology from polyp.
[2020-11-08 09:39] VITALS: RESP 16
[2020-11-08 09:54] VITALS: BP 114/70; PULSE 49
== END 2020-11-08 10:11 | disposition home or self-care (01) ==
LOC: ORWHC2ENDO 07:52
PROVIDERS: ATTEND Internal Medicine
DX: Z12.11 Encounter for screening for malignant neoplasm of colon (principal); D12.2 Benign neoplasm of ascending colon; K64.8 Other hemorrhoids; Q43.8 Other specified congenital malformations of intestine; I48.91 Unspecified atrial fibrillation; I10 Essential (primary) hypertension; Z79.01 Long term (current) use of anticoagulants; Z79.899 Other long term (current) drug therapy; Z98.890 Other specified postprocedural states; Z88.2 Allergy status to sulfonamides
CPT/HCPCS: 88305; 45380; J2704

== ENCOUNTER → 2020-11-23 | Outpatient (CLI) | payer MEDICARE ==
[2020-11-23 11:58] LABS: HCT 47.3 % (39.0-53.0); HGB 16.3 gm/dL (13.0-17.5); MCH 32.8 pg (25.0-35.0); MCHC 34.4 g/dL (31.0-37.0); MCV 95.4 fL (80.0-100.0); Mean Platelet Volume 8.2; Platelet Count 210 k/uL (150-450); RBC 4.96 m/uL (4.30-5.90); WBC 8.1 k/uL (3.8-10.6)
[2020-11-23 12:15] LABS: African American GFR (CKD) >90 (>60 ml/min/1.73 sqM); Anion Gap 7 mmol/L; Blood Urea Nitrogen 13 mg/dL (9-20); Carbon Dioxide 27 mmol/L (22-30); Chloride 102 mmol/L (98-107); Non-African American GFR(CKD) >90 (>60 ml/min/1.73 sqM); Potassium 4.5 mmol/L (3.5-5.1); Sodium 136 mmol/L (137-145)
== END | disposition home or self-care (01) ==
LOC: LABPAT 11:24
PROVIDERS: ATTEND Internal Medicine Cardiovascular Disease
DX: Z01.812 Encounter for preprocedural laboratory examination (principal); I48.21 Permanent atrial fibrillation
CPT/HCPCS: 36415; 80051; 82565; 84520; 85027

== ENCOUNTER → 2020-12-04 | Day surgery (SDC) | payer MEDICARE ==
[2020-12-03 08:23] VITALS: BMI 18.2
[~2020-12-04] MED LIST changes: -LACTATED RINGERS 1,000 ML IV SCH; +SODIUM CHLORIDE 0.9% 1,000 ML IV SCH
[2020-12-04 08:54] VITALS: BP 122/64; PULSE 41; RESP 16; TEMP 96.9
--- NOTE | 2020-12-07 13:01 | PN ---
PROGRESS NOTE This is a 65-year-old gentleman who came to hospital on 12/04/2020 for a ELENITA cardioversion, but he was found to be in sinus rhythm at that time. Hence the procedure was canceled. TANNER / JUDYN: [id number] /
== END ==
LOC: CATHCVL 07:45
PROVIDERS: ATTEND Internal Medicine Cardiovascular Disease
DX: I48.91 Unspecified atrial fibrillation (principal); Z53.8 Procedure and treatment not carried out for other reasons

== ENCOUNTER 2022-01-16 11:36 | Inpatient (IN) | payer MEDICARE ==
[2022-01-16 13:13] LABS: Basophils # (A) 0.1 k/uL (0-0.2); Basophils % (A) 1 %; Eosinophils # (A) 0.1 k/uL (0-0.7); Eosinophils % (A) 1 %; HCT 46.7 % (39.0-53.0); HGB 16.2 gm/dL (13.0-17.5); Lymphocytes # (A) 1.3 k/uL (1.0-4.8); Lymphocytes % (A) 8 %; MCH 31.3 pg (25.0-35.0); MCHC 34.7 g/dL (31.0-37.0); MCV 90.3 fL (80.0-100.0); Mean Platelet Volume 9.1; Monocytes # (A) 0.8 k/uL (0-1.0); Monocytes % (A) 5 %; Neutrophils # (A) 12.7 k/uL (1.3-7.7); Neutrophils % (A) 85 %; Platelet Count 186 k/uL (150-450); RBC 5.17 m/uL (4.30-5.90); RDW 13.1 % (11.5-15.5)
[2022-01-16 13:21] LABS: ALT 85 U/L (4-49); AST 57 U/L (17-59); African American GFR (CKD) >90 (>60 ml/min/1.73 sqM); Albumin 4.6 g/dL (3.5-5.0); Alkaline Phosphatase 108 U/L (38-126); Amylase 49 U/L (30-110); Anion Gap 13 mmol/L; Blood Urea Nitrogen 23 mg/dL (9-20); Calcium 9.7 mg/dL (8.4-10.2); Carbon Dioxide 28 mmol/L (22-30); Chloride 95 mmol/L (98-107); Glucose 137 mg/dL (74-99); Lipase 81 U/L (23-300); Non-African American GFR(CKD) 89 (>60 ml/min/1.73 sqM); Potassium 3.5 mmol/L (3.5-5.1); Sodium 136 mmol/L (137-145); Total Bilirubin 0.7 mg/dL (0.2-1.3)
[2022-01-16 13:30] LABS: INR 0.9 (<1.2); Prothrombin Time 9.7 sec (9.0-12.0)
[2022-01-16] MEDS ORDERED: FAMOTIDINE 20 MG/2 ML VIAL IV STA (17:47)
[2022-01-16] MEDS ORDERED: SODIUM CHLORIDE 0.9% 1,000 ML IV STA (17:47)
[2022-01-16] MEDS ORDERED: ONDANSETRON 4 MG/2 ML VIAL IVP STA (17:47)
[2022-01-16] MEDS ORDERED: HYDROmorphone 1 MG/ML 1 ML SYRINGE IVP STA (17:47)
--- NOTE | 2022-01-16 17:49 | XR ---
EXAMINATION TYPE: XR KUB DATE OF EXAM: 01/16/2022 COMPARISON: January 2013 HISTORY: Abdominal pain TECHNIQUE: 2 views upright FINDINGS: There is no sign of intestinal obstruction or pneumoperitoneum. Fecal pattern is normal. Th ere is blunting right costophrenic angle. There is flattening of the diaphragm. No calcification seen over the kidneys. IMPRESSION: Nonacute abdomen. No sign of constipation. COPD. Pleural diaphragmatic scarring at the [facility] lung base which is increased compared to old exams.
--- NOTE | 2022-01-16 17:49 | ED ---
General Adult HPI - General Chief complaint: Abdominal Pain Stated complaint: Vomiting Time Seen by Provider: 01/16/22 17:17 Source: patient, RN notes reviewed Mode of arrival: wheelchair Limitations: no limitations - History of Present Illness Initial comments: Patient is a pleasant 66-year-old male presenting to the emergency department with concerns with abdominal discomfort. Onset of symptoms was around a month ago. Symptoms have slowly worsened since that time. Patient is vomiting, more recently. Patient has some mild chronic diarrhea, unchanged. Patient does have history of ischemic bowel with approximately 6 feet removed, proximally 6 years ago. No fevers. Discomfort is mostly epigastric however does have some back discomfort as well. - Related Data Home Medications Medication Instructions Recorded Confirmed Ascorbic Acid [Vitamin C] 500 mg PO DAILY 09/11/20 01/16/22 Fluticasone/Umeclidin/Vilanter 1 puff INHALATION RT-DAILY 12/03/20 01/16/22 [Trelegy Ellipta 100-62.5-25] Cholecalciferol [Vitamin D3 (125 125 mcg PO DAILY 01/16/22 01/16/22 Mcg = 5000 Iu)] Multivit-Min/FA/Lycopen/Lutein 1 tab PO DAILY 01/16/22 01/16/22 [Centrum Silver Men Tablet] Zinc Gluconate [Zinc] 50 mg PO DAILY 01/16/22 01/16/22 Previous Rx's Medication Instructions Recorded Apixaban [Eliquis] 5 mg PO BID 30 Days #60 tab 09/18/20 Spironolactone [Aldactone] 25 mg PO DAILY 30 Days #30 tab 09/18/20 lisinopriL [Zestril] 2.5 mg PO DAILY 30 Days #30 tab 09/18/20 Allergies Allergy/AdvReac Type Severity Reaction Status Date / Time Sulfa (Sulfonamide AdvReac Rash/Hives Verified 01/16/22 20:07 Antibiotics) Review of Systems ROS Statement: Those systems with pertinent positive or pertinent negative responses have been documented in the HPI. ROS Other: All systems not noted in ROS Statement are negative. Constitutional: Denies: fever Eyes: Denies: eye pain ENT: Denies: ear pain Respiratory: Denies: cough Cardiovascular: Denies: chest pain Endocrine: Denies: as per HPI Gastrointestinal: Reports: as per HPI, abdominal pain, nausea, vomiting Genitourinary: Denies: dysuria Musculoskeletal: Reports: as per HPI Skin: Denies: rash Past Medical History Past Medical History: Atrial Fibrillation, Hypertension Additional Past Medical History / Comment(s): HX BOEL ISCHEMIA, POSS KIDNEY INFARCT, INCREASED DIFFICULTY IN BREATHING. had broken clavicles in the past, HARD TO BREATHE History of Any Multi-Drug Resistant Organisms: None Reported Past Surgical History: Back Surgery, Bowel Resection, Orthopedic Surgery Additional Past Surgical History / Comment(s): BOWEL RESECTION 2013-, COLONOSCOPY, Past Anesthesia/Blood Transfusion Reactions: Previous Problems w/ Anesthesia Additional Past Anesthesia/Blood Transfusion Reaction / Comment(s): ANGRY WHEN COMING OUT OF ANESTHESIA Past Psychological History: No Psychological Hx Reported Smoking Status: Current every day smoker - Past Family History Father Family Medical History: Cancer Mother Additional Family Medical History / Comment(s): pts. states his mother from alzheimers General Exam Limitations: no limitations General appearance: alert Head exam: Present: normocephalic Eye exam: Present: normal appearance ENT exam: Present: normal oropharynx Neck exam: Present: normal inspection Respiratory exam: Present: normal lung sounds bilaterally Cardiovascular Exam: Present: regular rate, normal rhythm Expanded Peripheral pulses: 2+: Dorsalis Pedis (R), Dorsalis Pedis (L) GI/Abdominal exam: Present: soft, tenderness (Mild diffuse tenderness, moderate epigastric), normal bowel sounds. Absent: distended, guarding, rebound, rigid, pulsatile mass Extremities exam: Present: normal inspection. Absent: pedal edema, calf tenderness Neurological exam: Present: alert Psychiatric exam: Present: normal affect, normal mood Skin exam: Present: normal color Course Vital Signs 01/16/22 01/16/22 12:42 17:16 Temperature 98.3 F 98.2 F Pulse Rate 60 56 L Respiratory 20 22 Rate Blood Pressure 142/79 125/74 O2 Sat by Pulse 98 97 Oximetry EKG Findings - EKG Comments: EKG Findings:: Sinus bradycardia 54. WI 176. QRS 88. QT 447. QTC 434. Normal axis. Septal Q waves. No acute ST change. Medical Decision Making - Medical Decision Making Patient reevaluated. Patient and family updated. Patient still has abdominal discomfort and vomited again despite medications. Patient does not feel comfortable with discharge home. Case was discussed with Dr. Dutton, who will admit [facility] observation - Lab Data Result diagrams: 01/16/22 12:50 01/16/22 12:50 Lab Results 01/16/22 01/16/22 01/16/22 Range/Units 12:50 12:50 12:50 WBC 15.0 H (3.8-10.6) k/uL RBC 5.17 (4.30-5.90) m/uL Hgb 16.2 (13.0-17.5) gm/dL Hct 46.7 (39.0-53.0) % MCV 90.3 (80.0-100.0) fL MCH 31.3 (25.0-35.0) pg MCHC 34.7 (31.0-37.0) g/dL RDW 13.1 (11.5-15.5) % Plt Count 186 (150-450) k/uL MPV 9.1 Neutrophils % 85 % Lymphocytes % 8 % Monocytes % 5 % Eosinophils % 1 % Basophils % 1 % Neutrophils # 12.7 H (1.3-7.7) k/uL Lymphocytes # 1.3 (1.0-4.8) k/uL Monocytes # 0.8 (0-1.0) k/uL Eosinophils # 0.1 (0-0.7) k/uL Basophils # 0.1 (0-0.2) k/uL PT 9.7 (9.0-12.0) sec INR 0.9 (<1.2) APTT 25.0 (22.0-30.0) sec Sodium 136 L (137-145) mmol/L Potassium 3.5 (3.5-5.1) mmol/L Chloride 95 L (98-107) mmol/L Carbon Dioxide 28 (22-30) mmol/L Anion Gap 13 mmol/L BUN 23 H (9-20) mg/dL Creatinine 0.87 (0.66-1.25) mg/dL Est GFR (CKD-EPI)AfAm >90 (>60 ml/min/1.73 sqM) Est GFR (CKD-EPI)NonAf 89 (>60 ml/min/1.73 sqM) Glucose 137 H (74-99) mg/dL Calcium 9.7 (8.4-10.2) mg/dL Total Bilirubin 0.7 (0.2-1.3) mg/dL AST 57 (17-59) U/L ALT 85 H (4-49) U/L Alkaline Phosphatase 108 (38-126) U/L Troponin I (0.000-0.034) ng/mL Total Protein 7.0 (6.3-8.2) g/dL Albumin 4.6 (3.5-5.0) g/dL Amylase 49 (30-110) U/L Lipase 81 (23-300) U/L 01/16/22 Range/Units 12:50 WBC (3.8-10.6) k/uL RBC (4.30-5.90) m/uL Hgb (13.0-17.5) gm/dL Hct (39.0-53.0) % MCV (80.0-100.0) fL MCH (25.0-35.0) pg MCHC (31.0-37.0) g/dL RDW (11.5-15.5) % Plt Count (150-450) k/uL MPV Neutrophils % % Lymphocytes % % Monocytes % % Eosinophils % % Basophils % % Neutrophils # (1.3-7.7) k/uL Lymphocytes # (1.0-4.8) k/uL Monocytes # (0-1.0) k/uL Eosinophils # (0-0.7) k/uL Basophils # (0-0.2) k/uL PT (9.0-12.0) sec INR (<1.2) APTT (22.0-30.0) sec Sodium (137-145) mmol/L Potassium (3.5-5.1) mmol/L Chloride (98-107) mmol/L Carbon Dioxide (22-30) mmol/L Anion Gap mmol/L BUN (9-20) mg/dL Creatinine (0.66-1.25) mg/dL Est GFR (CKD-EPI)AfAm (>60 ml/min/1.73 sqM) Est GFR (CKD-EPI)NonAf (>60 ml/min/1.73 sqM) Glucose (74-99) mg/dL Calcium (8.4-10.2) mg/dL Total Bilirubin (0.2-1.3) mg/dL AST (17-59) U/L ALT (4-49) U/L Alkaline Phosphatase (38-126) U/L Troponin I <0.012 (0.000-0.034) ng/mL Total Protein (6.3-8.2) g/dL Albumin (3.5-5.0) g/dL Amylase (30-110) U/L Lipase (23-300) U/L - Radiology Data Radiology results: report reviewed (Computed tomography scan abdomen pelvis does not reveal acute abnormality), image reviewed (Nonspecific abdomen) Disposition Clinical Impression: Abdominal pain Disposition: ADMITTED IP TO THIS HOSP Is patient prescribed a controlled substance at d/c from ED?: No Referrals: Kahlil Liu MD [Primary Care Provider] - 1-2 days Time of Disposition: 20:17
--- NOTE | 2022-01-16 18:42 | CT ---
EXAMINATION TYPE: CT abdomen pelvis w con DATE OF EXAM: 01/16/2022 COMPARISON: 09/11/2020 HISTORY: abdominal pain. N/V CT DLP: 660.6 mGycm Automated exposure control for dose reduction was used. CONTRAST: Performed with IV Contrast, patient injected with 100 mL of Isovue 370. Images obtained from the diaphragm to the floor of the pelvis with the IV contrast. There is mild scarring and subsegmental atelectasis at the right lung base. There is blunting right c ostophrenic angle and slightly elevated right diaphragm. There is overall pulmonary hyperinflation an d COPD changes. Heart size is normal. No pericardial effusion. Liver spleen stomach and pancreas appe ar intact. The bile ducts are not dilated. Gallbladder appears normal. There is no adrenal mass. There is cortical thinning posterior left kidney consistent with scarring f rom chronic pyelonephritis or infarct.. No hydronephrosis. There is 3 cm cortical cyst lateral right kidney. Delayed images show normal renal excretion. There are surgical clips in the right lower quadr ant at the region of the cecum. Prostate appears enlarged and measures 6 cm. No inguinal hernia. No f ree fluid in the pelvis. Urinary bladder is almost empty. The lumbar vertebrae have normal alignment. There is degenerative spur formation in the lumbar spine. No compression fracture. There is posterior fusion surgery at L5 level. Abdominal aorta is atheromatous. No retroperitoneal adenopathy. No mesenteric edema. No sign of ascit es or free air. No sign of a bowel obstruction. IMPRESSION: Previous right colon surgery. No bowel obstruction. No change of the right colon. Changes of scarring and atrophy in the left kidney related to old infarct or pyelonephritis evident o n the old CT scan. COPD and mild scarring at the right lung base. No change. No evidence of ischemic bowel.
[2022-01-16] MEDS ORDERED: HYDROmorphone 1 MG/ML 1 ML SYRINGE IVP PRN (20:19)
[2022-01-16] MEDS ORDERED: ONDANSETRON 4 MG/2 ML VIAL IVP PRN (20:19)
[2022-01-16] MEDS ORDERED: NALOXONE 0.4 MG/ML 1 ML VIAL IV PRN (20:19)
--- NOTE | 2022-01-17 00:27 | P.HPIM ---
History of Present Illness H&P Date: 01/16/22 Chief Complaint: abd pain, nausea and vomiting 66 year old male with [employer] on eliquis , hypertension patient comes in with complaint of worsening abd pain over the past week a ssociated with repeated nausea and vomiting non bloody non bilious , he does endorse chronic mild diarrhea since his bowel surgery 6 years ago. but these symptoms are getting worse especially over the past week , associated with chills, and dysuria , one episode of small amount of coffee ground vomiting. , he has not taken his Eliquis for over a week now as he is not tolerating PO intake , he lost 15 lb over past 1-2 weeks. and his started showing symptoms of abd discomfort and some GI upset over the past couple days , but not as severe as his symptoms . he denies any recent travel or unsanitary food or drink. he is unvaccinated against covid, denies any body aches, fever, cough or sore throat workup in the ED showed leukocytosis . abd CT no acute findings Review of Systems Pertinent positives as noted in HPI. All other systems were reviewed and are negative Past Medical History Past Medical History: Atrial Fibrillation, Hypertension Additional Past Medical History / Comment(s): HX BOEL ISCHEMIA, POSS KIDNEY INFARCT, INCREASED DIFFICULTY IN BREATHING. had broken clavicles in the past, HARD TO BREATHE History of Any Multi-Drug Resistant Organisms: None Reported Past Surgical History: Back Surgery, Bowel Resection, Orthopedic Surgery Additional Past Surgical History / Comment(s): BOWEL RESECTION 2012-, COLONOSCOPY, Past Anesthesia/Blood Transfusion Reactions: Previous Problems w/ Anesthesia Additional Past Anesthesia/Blood Transfusion Reaction / Comment(s): ANGRY WHEN COMING OUT OF ANESTHESIA Past Psychological History: No Psychological Hx Reported Smoking Status: Current every day smoker - Past Family History Father Family Medical History: Cancer Mother Additional Family Medical History / Comment(s): pts. states his mother from alzheimers Medications and Allergies Home Medications Medication Instructions Recorded Confirmed Type Ascorbic Acid [Vitamin C] 500 mg PO DAILY 09/11/20 01/16/22 History Apixaban [Eliquis] 5 mg PO BID 30 Days #60 tab 09/18/20 01/16/22 Rx Spironolactone [Aldactone] 25 mg PO DAILY 30 Days #30 tab 09/18/20 01/16/22 Rx lisinopriL [Zestril] 2.5 mg PO DAILY 30 Days #30 tab 09/18/20 01/16/22 Rx Fluticasone/Umeclidin/Vilanter 1 puff INHALATION RT-DAILY 12/03/20 01/16/22 History [Hernesto Parson 100-62.5-25] Cholecalciferol [Vitamin D3 (125 125 mcg PO DAILY 01/16/22 01/16/22 History Mcg = 5000 Iu)] Multivit-Min/FA/Lycopen/Lutein 1 tab PO DAILY 01/16/22 01/16/22 History [Centrum Silver Men Tablet] Zinc Gluconate [Zinc] 50 mg PO DAILY 01/16/22 01/16/22 History Allergies Allergy/AdvReac Type Severity Reaction Status Date / Time Sulfa (Sulfonamide AdvReac Rash/Hives Verified 01/16/22 20:07 Antibiotics) Physical Exam Vitals: Vital Signs Temp Pulse Resp BP Pulse Ox 01/16/22 17:16 98.2 F 56 L 22 125/74 97 01/16/22 12:42 98.3 F 60 20 142/79 98 Intake and Output 01/16/22 01/16/22 01/17/22 14:59 22:59 06:59 Other: Weight 71.214 kg Constitutional: No acute distress, conversant, pleasant, cachectic Eyes: Anicteric sclerae, moist conjunctiva, 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, left pupil Pupils round reactive to light ENMT: NC/AT Oropharynx clear, no erythema, or exudates Neck: Supple, FROM, no masses, or JVD No carotid bruits No thyromegaly Lungs: Clear to auscultation Clear to percussion Normal respiratory effort, no accessory muscle use Cardiovascular: Heart regular in rate and rhythm, No murmurs, gallops, or rubs No peripheral edema Abdominal: Soft Discomfort diffuse to deep palpation, mainly in the epigastric region, no guarding, rebound or rigidity Abdomen moving with respiration Normoactive bowel sounds No hepatomegaly, No splenomegaly No palpable mass No abdominal wall hernia noted Skin: Normal temperature, tone, texture, turgor No induration No subcutaneous nodules No rash, lesions No ulcers Extremities: No digital cyanosis No clubbing Pedal pulses intact and symmetrical Radial pulses intact and symmetrical No calf tenderness Psychiatric: Alert and oriented to person, place and time Appropriate affect fair judgement Neuro Muscles Strength 5/5 in all 4 extremities Sensation to light touch grossly present throughout Cranial nerves II-XII grossly intact No focal sensory deficits Lymphatics: no palpable cervical or supraclavicular , or inguinal lymph nodes Results CBC & Chem 7: 01/16/22 12:50 01/16/22 12:50 Labs: Abnormal Lab Results - Last 24 Hours (Table) 01/16/22 01/16/22 Range/Units 12:50 12:50 WBC 15.0 H (3.8-10.6) k/uL Neutrophils # 12.7 H (1.3-7.7) k/uL Sodium 136 L (137-145) mmol/L Chloride 95 L (98-107) mmol/L BUN 23 H (9-20) mg/dL Glucose 137 H (74-99) mg/dL ALT 85 H (4-49) U/L Assessment and Plan Assessment: Acute gastroenteritis symptoms Check Covid Check influenza Supportive care Symptomatically controlled nausea vomiting with Zofran Pain control with opiates IV fluid hydration normal saline Abdominal CT no acute findings PPI Monitor for any GI bleeding Hemoglobin stable A. fib on eliquis Leukocytosis Patient reports dysuria Check UA Patient received one-time dose of antibiotic in the ED Full code DVT prophylaxis on eliquis
[2022-01-17] MEDS: SYMBICORT 80-4.5 MCG INHALER INHALATION SCH ×2 (08:00→19:16)
[2022-01-17] MEDS ORDERED: IPRATROPIUM 0.5 MG/2.5 ML NEBU INHALATION SCH (08:00)
[2022-01-17] MEDS: PANTOPRAZOLE 40 MG/10 ML VIAL IV SCH ×2 (08:09→10:01)
[2022-01-17] MEDS: SODIUM CHLORIDE 0.9% 1,000 ML IV SCH ×3 (08:09→12:44)
[2022-01-17 08:53] LABS: Basophils # (A) 0.03 X 10*3/uL (0.00-0.10); Basophils % (A) 0.2 %; Eosinophils # (A) 0.01 X 10*3/uL (0.04-0.35); Eosinophils % (A) 0.1 %; HCT 38.6 % (39.6-50.0); HGB 13.8 g/dL (13.0-17.0); Immature Grans, Automated 0.5 %; Lymphocytes # (A) 1.32 X 10*3/uL (0.90-5.00); Lymphocytes % (A) 9.4 %; MCH 31.4 pg (27.0-32.0); MCHC 35.8 g/dL (32.0-37.0); MCV 87.7 fL (80.0-97.0); Mean Platelet Volume 11.6 fL (9.5-12.2); Monocytes # (A) 1.12 X 10*3/uL (0.20-1.00); Monocytes % (A) 7.9 %; NRBC Per 100 WBC 0 /100 WBCS (0.0-0.0); Neutrophils # (A) 11.56 X 10*3/uL (1.80-7.70); Neutrophils % (A) 81.9 %; Platelet Count 189 X 10*3/uL (140-440); RDW 14.3 % (11.5-14.5); WBC 14.11 X 10*3/uL (4.50-10.00)
[2022-01-17 09:18] LABS: African American GFR (CKD) 106.4 (60.0-200.0); Albumin 3.7 g/dL (3.8-4.9); Albumin/Globulin Ratio 1.95 (1.60-3.17); Anion Gap 10.9 mmol/L (10.00-18.00); BUN/Creat Ratio 22.13 Ratio (12.00-20.00); Blood Urea Nitrogen 17.7 mg/dL (9.0-27.0); Calcium 8.4 mg/dL (8.7-10.3); Carbon Dioxide 28.1 mmol/L (20.0-27.5); Globulin 1.9 g/dL (1.6-3.3); Non-African American GFR(CKD) 91.8 (60.0-200.0); Potassium 3.5 mmol/L (3.5-5.5); Total Bilirubin 0.5 mg/dL (0.30-1.20); Total Protein 5.6 g/dL (6.2-8.2)
[2022-01-17] MEDS: APIXABAN 5 MG TAB PO SCH ×2 (10:03→19:36)
[2022-01-17] MEDS: TIOTROPIUM 2.5 MCG INHALER INHALATION SCH (11:43)
[2022-01-17] MEDS: HYDROmorphone 0.5 MG/0.5 ML SYRINGE IVP PRN ×2 (12:44→19:35)
--- NOTE | 2022-01-17 18:47 | P.PN ---
Subjective Progress Note Date: 01/17/22 Hospital course: Patient is a very pleasant 66-year-old male with a past medical history of hypertension, paroxysmal atrial fibrillation on Eliquis, bowel ischemia status post resection in 2012, COPD and nicotine dependence. He presented to the emergency department of diffuse abdominal pain accompanied by nausea and vomiting. He underwent full evaluation in the emergency department. EKG was completed revealing sinus bradycardia at 54 bpm. CBC revealing leukocytosis with WBC count of 15.0 and CMP showing no significant abnormalities with the exception of mildly elevated BUN at 23 and ALT of 85. KUB nonacute abdomen. CT abdomen and pelvis negative for bowel obstruction, negative for bowel ischemia and negative for acute intra-abdominal process at this time. Physical exam: Vital signs reviewed and stable. General: Nontoxic, no distress and appears stated age. Derm: Skin warm and dry, normal coloration for ethnicity. Head: Atraumatic, normocephalic and symmetric. Eyes: EOMs intact, no lid lag, and anicteric sclera Mouth: no lip lesions, mucus membranes moist Cardiovascular: regular rate and rhythm with normal S1S2, no murmur, positive posterior tibial pulses bilaterally, and cap refill < 2 seconds. Lungs: Respirations even, regular, and unlabored on room air. Lungs CTA bilaterally, no rhonchi, no rales, no wheezing, and no accessory muscle usage. Abdominal: soft, nontender to palpation, no guarding, no appreciable organomegaly Ext: ROM intact. No gross muscle atrophy, no edema, no contractures Neuro: Speech clear, face symmetrical and CN II-XII grossly intact with no noted focal neuro deficits Psych: Alert and oriented to person, place, time, and situation. Appropriate and pleasant affect. Assessment and Plan of Care: Covid 19 virus infection with GI complaints Acute viral gastritis secondary to above -Symptomatic care and pain management -Supportive treatment. -IV fluid hydration -Encourage clear liquids -PPI with Protonix -Contact plus droplet precautions Paroxysmal atrial fibrillation -Continue anticoagulation with Eliquis COPD -Continue Symbicort and Spiriva, duo nebs as needed for shortness of breath and/or wheezing. Hypertension -Monitor vital signs and continue daily medication regimen with lisinopril. CODE STATUS: Full code DVT prophylaxis: Eliquis Discussed with: Patient and RN Anticipated discharge date: 1-[address]: Home A total of 34 minutes was spent on the care of this complex patient more than 50% of the time was spent in counseling and care coordination. I reviewed the documentation as provided by the PANKAJ above, who is the original author of this note. I agree with the documented assessment and plan, with the following changes: none Objective - Vital Signs Vital signs: Vital Signs Temp 98.4 F 01/17/22 13:24 Pulse 54 L 01/17/22 13:24 Resp 18 01/17/22 13:24 BP 112/60 01/17/22 13:24 Pulse Ox 96 01/17/22 13:24 FiO2 Intake & Output 01/16/22 01/17/22 01/17/22 18:59 06:59 18:59 Weight 71.214 kg 71.214 kg Other: # Voids 1 - Labs CBC & Chem 7: 01/17/22 05:57 01/17/22 05:57 Labs: Abnormal Lab Results - Last 24 Hours (Table) 01/17/22 01/17/22 01/17/22 Range/Units 05:57 05:57 10:00 WBC 14.11 H (4.50-10.00) X 10*3/uL Hct 38.6 L (39.6-50.0) % Immature Gran # 0.07 H (0.00-0.04) X 10*3/uL Neutrophils # 11.56 H (1.80-7.70) X 10*3/uL Monocytes # 1.12 H (0.20-1.00) X 10*3/uL Eosinophils # 0.01 L (0.04-0.35) X 10*3/uL Carbon Dioxide 28.1 H (20.0-27.5) mmol/L BUN/Creatinine Ratio 22.13 H (12.00-20.00) Ratio Glucose 118 H (70-110) mg/dL Calcium 8.4 L (8.7-10.3) mg/dL ALT 58 H (10-49) U/L Total Protein 5.6 L (6.2-8.2) g/dL Albumin 3.7 L (3.8-4.9) g/dL Coronavirus (PCR) Detected A (Not Detectd)
[2022-01-17] MEDS: ACETAMINOPHEN TAB 325 MG TAB PO PRN (20:02)
[2022-01-17] MEDS: ONDANSETRON 4 MG/2 ML VIAL IVP PRN (20:02)
[2022-01-17 23:36] LABS: Appearance,Urine Cloudy (Clear); Bacteria,Urine Many /hpf; Bilirubin,Urine 1+ (Negative); Blood,Urine Moderate (Negative); Color,Urine Orange; Glucose,Urine (UA) Negative (Negative); Ketones,Urine 1+ (Negative); Leukocyte Esterase,Urine Large (Negative); Mucus,Urine Many /hpf; Nitrite,Urine Positive (Negative); Protein,Urine 2+ (Negative); RBC,Urine 13 /hpf (0-5); Specific Gravity,Urine 1.025 (1.001-1.035); Squamous Epithelial Cell,Urine 2 /hpf (0-4); WBC,Urine >182 /hpf (0-5)
[2022-01-18] MEDS: ONDANSETRON 4 MG/2 ML VIAL IVP PRN ×2 (03:48→20:26)
[2022-01-18] MEDS: SODIUM CHLORIDE 0.9% 1,000 ML IV SCH ×2 (03:59→10:41)
[2022-01-18] MEDS: TIOTROPIUM 2.5 MCG INHALER INHALATION SCH (08:23)
[2022-01-18] MEDS: SYMBICORT 80-4.5 MCG INHALER INHALATION SCH ×2 (08:23→18:32)
[2022-01-18] MEDS: APIXABAN 5 MG TAB PO SCH ×2 (08:26→20:25)
[2022-01-18] MEDS: PANTOPRAZOLE 40 MG/10 ML VIAL IV SCH (08:26)
[2022-01-18 10:52] LABS: HCT 37.9 % (39.0-53.0); MCH 31.2 pg (25.0-35.0); MCHC 33.6 g/dL (31.0-37.0); MCV 92.9 fL (80.0-100.0); Mean Platelet Volume 9.3; Platelet Count 152 k/uL (150-450); RBC 4.08 m/uL (4.30-5.90); RDW 13.4 % (11.5-15.5); WBC 13.7 k/uL (3.8-10.6)
[2022-01-18 10:56] LABS: ALT 34 U/L (4-49); AST 21 U/L (17-59); African American GFR (CKD) >90 (>60 ml/min/1.73 sqM); Albumin 2.7 g/dL (3.5-5.0); Albumin/Globulin Ratio 1.4; Alkaline Phosphatase 72 U/L (38-126); Anion Gap 7 mmol/L; Blood Urea Nitrogen 17 mg/dL (9-20); Calcium 7.3 mg/dL (8.4-10.2); Carbon Dioxide 26 mmol/L (22-30); Chloride 98 mmol/L (98-107); Glucose 185 mg/dL (74-99); Magnesium 1.7 mg/dL (1.6-2.3); Non-African American GFR(CKD) >90 (>60 ml/min/1.73 sqM); Potassium 3.3 mmol/L (3.5-5.1); Sodium 131 mmol/L (137-145); Total Bilirubin 0.9 mg/dL (0.2-1.3); Total Protein 4.7 g/dL (6.3-8.2)
[2022-01-18 10:57] LABS: HGB 12.7 gm/dL (13.0-17.5)
[2022-01-18] MEDS: HYDROmorphone 0.5 MG/0.5 ML SYRINGE IVP PRN ×2 (13:59→20:27)
[2022-01-18] MEDS ORDERED: POTASSIUM CHLORIDE ER 20 MEQ TAB.ER PO STA (14:16)
--- NOTE | 2022-01-18 14:23 | P.PN ---
Subjective Progress Note Date: 01/18/22 Hospital course: Patient is a very pleasant 66-year-old male with a past medical history of hypertension, paroxysmal atrial fibrillation on Eliquis, bowel ischemia status post resection in 2013, COPD and nicotine dependence. He presented to the emergency department of diffuse abdominal pain accompanied by nausea and vomiting. He underwent full evaluation in the emergency department. EKG was completed revealing sinus bradycardia at 54 bpm. CBC revealing leukocytosis with WBC count of 15.0 and CMP showing no significant abnormalities with the exception of mildly elevated BUN at 23 and ALT of 85. KUB nonacute abdomen. CT abdomen and pelvis negative for bowel obstruction, negative for bowel ischemia and negative for acute intra-abdominal process at this time. Physical exam: Patient seen and fully evaluated at bedside this morning. Patient appears to be doing slightly better as he reports pain is much better controlled. Urine specimen was sent to lab and urinalysis is positive for infection. Patient started on Rocephin at this time. Overnight oral temperature high 102.6F. Morning labs revealed continued leukocytosis with WBC count of 13.7, normocytic anemia with hemoglobin of 12.7, hyponatremia with sodium of 131, hypokalemia with potassium of 3.3, and hypomagnesemia with magnesium of 1.7.Patient denies having any headache, lightheadedness, dizziness, chest pain, palpitations, shortness of breath, or experiencing any numbness/tingling/weakness/swelling in his extremities. Patient reports slight improvement in previous diarrhea reports he is back more towards his chronic baseline. Vital signs reviewed and stable. General: Nontoxic, no distress and appears stated age. Derm: Skin warm and dry, normal coloration for ethnicity. Head: Atraumatic, normocephalic and symmetric. Eyes: EOMs intact, no lid lag, and anicteric sclera Mouth: no lip lesions, mucus membranes moist Cardiovascular: regular rate and rhythm with normal S1S2, no murmur, positive posterior tibial pulses bilaterally, and cap refill < 2 seconds. Lungs: Respirations even, regular, and unlabored on room air. Lungs CTA bilaterally, no rhonchi, no rales, no wheezing, and no accessory muscle usage. Abdominal: soft, nontender to palpation, no guarding, no appreciable organ omegaly Ext: ROM intact. No gross muscle atrophy, no edema, no contractures Neuro: Speech clear, face symmetrical and CN II-XII grossly intact with no noted focal neuro deficits Psych: Alert and oriented to person, place, time, and situation. Appropriate and pleasant affect. Assessment and Plan of Care: Sepsis lilely multifactorial due to Acute urinary tract infection and Covid infection Acute UTI Covid 19 virus infection with GI complaints Acute viral gastritis secondary to above -Continue Zinc, Vitamin C, and Vitamin D -Symptomatic care and pain management -Supportive treatment. -Pt received IV fluid hydration -Diet advanced to low fiber. -PPI with Protonix -Contact plus droplet precautions -IV antibiotic Rocephin for UTI, and follow up on urine cultures. Hypokalemia -Replaced, we will continue to monitor with repeat a.m. labs and replace abnormal electrolyte values as needed. Hypomagnesemia -Replaced, we will continue to monitor with repeat a.m. labs and replace abnormal electrolyte values as needed. Paroxysmal atrial fibrillation -Continue anticoagulation with Eliquis COPD -Continue Symbicort and Spiriva, duo nebs as needed for shortness of breath and/or wheezing. Hypertension -Monitor vital signs and continue daily medication regimen with lisinopril. CODE STATUS: Full code DVT prophylaxis: Eliquis Discussed with: Patient and RN Anticipated discharge date: clinical course to determine Anticipated discharge place: Home A total of 34 minutes was spent on the care of this complex patient more than 50% of the time was spent in counseling and care coordination. I reviewed the documentation as provided by the PANKAJ above, who is the original author of this note. I agree with the documented assessment and plan, with the following changes: none Objective - Vital Signs Vital signs: Vital Signs Temp 98.5 F 01/18/22 07:00 Pulse 50 L 01/18/22 07:00 Resp 18 01/18/22 07:00 BP 104/49 01/18/22 07:00 Pulse Ox 98 01/18/22 07:00 FiO2 Intake & Output 01/17/22 01/18/22 01/18/22 18:59 06:59 18:59 Intake Total 200 120 Balance 200 120 Intake: Oral 200 120 Other: Voiding Method Urinal Urinal # Voids 1 2 - Labs CBC & Chem 7: 01/18/22 10:21 01/18/22 10:21 Labs: Abnormal Lab Results - Last 24 Hours (Table) 01/17/22 01/17/22 01/17/22 Range/Units 05:57 10:00 23:00 Carbon Dioxide 28.1 H (20.0-27.5) mmol/L BUN/Creatinine Ratio 22.13 H (12.00-20.00) Ratio Glucose 118 H (70-110) mg/dL Calcium 8.4 L (8.7-10.3) mg/dL ALT 58 H (10-49) U/L Total Protein 5.6 L (6.2-8.2) g/dL Albumin 3.7 L (3.8-4.9) g/dL Urine Protein 2+ H (Negative) Urine Ketones 1+ H (Negative) Urine Blood Moderate H (Negative) Urine Bilirubin 1+ H (Negative) Ur Leukocyte Esterase Large H (Negative) Urine RBC 13 H (0-5) /hpf Urine WBC >182 H (0-5) /hpf Urine WBC Clumps Moderate H (None) /hpf Urine Bacteria Many H (None) /hpf Urine Mucus Many H (None) /hpf Coronavirus (PCR) Detected A (Not Detectd)
[2022-01-18] MEDS: MAGNESIUM SULFATE-D5W PMX 1 GM in DEXTROSE/WATER 1 100ML.BAG IVPB SCH ×2 (15:07→16:15)
[2022-01-18] MEDS: ASCORBIC ACID 500 MG TAB PO SCH (15:07)
[2022-01-18] MEDS: CHOLECALCIFEROL 125 MCG (5000 IU) TABLET PO SCH (15:07)
[2022-01-18] MEDS: ZINC SULFATE 220 MG CAP PO SCH (15:07)
[2022-01-18] MEDS: ACETAMINOPHEN TAB 325 MG TAB PO PRN (20:25)
[2022-01-19] MEDS: SYMBICORT 80-4.5 MCG INHALER INHALATION SCH ×2 (07:16→19:12)
[2022-01-19] MEDS: TIOTROPIUM 2.5 MCG INHALER INHALATION SCH (07:16)
[2022-01-19] MEDS: CHOLECALCIFEROL 125 MCG (5000 IU) TABLET PO SCH (08:13)
[2022-01-19] MEDS: ZINC SULFATE 220 MG CAP PO SCH (08:13)
[2022-01-19] MEDS: APIXABAN 5 MG TAB PO SCH ×2 (08:14→21:39)
[2022-01-19] MEDS: ASCORBIC ACID 500 MG TAB PO SCH (08:14)
[2022-01-19] MEDS: PANTOPRAZOLE 40 MG/10 ML VIAL IV SCH (08:14)
[2022-01-19] MEDS: HYDROmorphone 0.5 MG/0.5 ML SYRINGE IVP PRN ×2 (09:00→17:43)
--- NOTE | 2022-01-19 18:19 | P.PN ---
Subjective Progress Note Date: 01/19/22 Hospital course: Patient is a very pleasant 66-year-old male with a past medical history of hypertension, paroxysmal atrial fibrillation on Eliquis, bowel ischemia status post resection in 2013, COPD and nicotine dependence. He presented to the emergency department of diffuse abdominal pain accompanied by nausea and vomiting. He underwent full evaluation in the emergency department. EKG was completed revealing sinus bradycardia at 54 bpm. CBC revealing leukocytosis with WBC count of 15.0 and CMP showing no significant abnormalities with the exception of mildly elevated BUN at 23 and ALT of 85. KUB nonacute abdomen. CT abdomen and pelvis negative for bowel obstruction, negative for bowel ischemia and negative for acute intra-abdominal process at this time. Physical exam: Patient seen and fully evaluated at bedside this morning. Patient reports recurrent episodes of nausea this morning as well as mild abdominal pain/cramping.he denies having any headache, lightheadedness, dizziness, chest pain, palpitations, or shortness of breath. He does report mild cough with nasal congestion, however he denies experiencing any shortness of breath and SpO2 is 94% on room air. Preliminary urine culture resulting positive for gram- negative bacilli. Patient remains on Rocephin at this time. Vital signs reviewed and stable. General: Nontoxic, no distress and appears stated age. Derm: Skin warm and dry, normal coloration for ethnicity. Head: Atraumatic, normocephalic and symmetric. Eyes: EOMs intact, no lid lag, and anicteric sclera Mouth: no lip lesions, mucus membranes moist Cardiovascular: regular rate and rhythm with normal S1S2, no murmur, positive posterior tibial pulses bilaterally, and cap refill < 2 seconds. Lungs: Respirations even, regular, and unlabored on room air. Lungs CTA bilaterally, no rhonchi, no rales, no wheezing, and no accessory muscle usage. Abdominal: soft, nontender to palpation, no guarding, no appreciable organomegaly Ext: ROM intact. No gross muscle atrophy, no edema, no contractures Neuro: Speech clear, face symmetrical and CN II-XII grossly intact with no noted focal neuro deficits Psych: Alert and oriented to person, place, time, and situation. Appropriate and pleasant affect. Assessment and Plan of Care: Sepsis lilely multifactorial due to Acute urinary tract infection and Covid infection Acute UTI Covid 19 virus infection with GI complaints Acute viral gastritis secondary to above -Continue Zinc, Vitamin C, and Vitamin D -Symptomatic care and pain management -Supportive treatment. -Pt received IV fluid hydration -Diet advanced to low fiber. -PPI with Protonix -Contact plus droplet precautions -IV antibiotic Rocephin for UTI, and follow up on urine cultures. preliminary cultures positive for gram-negative bacilli. -chest x-ray to be completed. Hypokalemia -Replaced, we will continue to monitor with repeat a.m. labs and replace abnormal electrolyte values as needed. Hypomagnesemia -Replaced, we will continue to monitor with repeat a.m. labs and replace abnormal electrolyte values as needed. Paroxysmal atrial fibrillation -Continue anticoagulation with Eliquis COPD -Continue Symbicort and Spiriva, duo nebs as needed for shortness of breath and/or wheezing. Hypertension -Monitor vital signs and continue daily medication regimen with lisinopril. CODE STATUS: Full code DVT prophylaxis: Eliquis Discussed with: Patient and RN Anticipated discharge date: 24-[address]: Home A total of 35 minutes was spent on the care of this complex patient more than 50% of the time was spent in counseling and care coordination. .I reviewed the documentation as provided by the PANKAJ above, who is the original author of this note. I agree with the documented assessment and plan, with the following changes: none Objective - Vital Signs Vital signs: Vital Signs Temp 98.5 F 01/19/22 07:00 Pulse 40 L 01/19/22 07:00 Resp 18 01/19/22 07:00 BP 117/54 01/19/22 07:00 Pulse Ox 92 L 01/19/22 07:00 FiO2 Intake & Output 01/18/22 01/19/22 01/19/22 18:59 06:59 18:59 Intake Total 120 90 Output Total 100 750 300 Balance 20 -750 -210 Intake: Oral 120 90 Output: Urine 100 750 300 Other: Voiding Method Urinal Urinal Urinal # Voids 1 - Labs CBC & Chem 7: 01/18/22 10:21 01/18/22 10:21 Labs: Abnormal Lab Results - Last 24 Hours (Table) 01/18/22 01/18/22 Range/Units 10:21 10:21 WBC 13.7 H (3.8-10.6) k/uL RBC 4.08 L (4.30-5.90) m/uL Hgb 12.7 L D (13.0-17.5) gm/dL Hct 37.9 L (39.0-53.0) % Sodium 131 L (137-145) mmol/L Potassium 3.3 L (3.5-5.1) mmol/L Glucose 185 H (74-99) mg/dL Calcium 7.3 L (8.4-10.2) mg/dL Total Protein 4.7 L (6.3-8.2) g/dL Albumin 2.7 L (3.5-5.0) g/dL Microbiology - Last 24 Hours (Table) 01/17/22 23:00 Urine Culture - Preliminary Urine,Voided
[2022-01-19 21:32] VITALS: TEMP 98.5
[2022-01-20] MEDS: ONDANSETRON 4 MG/2 ML VIAL IVP PRN (00:47)
[2022-01-20 00:56] VITALS: BP 142/69; PULSE 45; RESP 20
--- NOTE | 2022-01-20 07:50 | P.DS ---
Providers Date of admission: 01/16/22 20:19 Expected date of discharge: 01/20/22 Attending physician: Rosalinda Siegel MD Primary care physician: Kahlil Liu Hospital Course: THIS IS NOT A DISCHARGE SUMMARY BUT A SUMMARY OF CARE, PT LEFT AGAINST MEDICAL ADVICE ON 01/20/22 Discharge Diagnosis: Sepsis lilely multifactorial due to Acute urinary tract infection and Covid i nfection Acute UTI Covid 19 virus infection with GI complaints Acute viral gastritis secondary to above Hypokalemia Hypomagnesemia Paroxysmal atrial fibrillation COPD Asymptomatic bradycardia Hypertension Hospital Course: Patient is a very pleasant 66-year-old male with a past medical history of hypertension, paroxysmal atrial fibrillation on Eliquis, bowel ischemia status post resection in 2012, COPD and nicotine dependence. He presented to the emergency department of diffuse abdominal pain accompanied by nausea and vomiting. He underwent full evaluation in the emergency department. EKG was completed revealing sinus bradycardia at 54 bpm. CBC revealing leukocytosis with WBC count of 15.0 and CMP showing no significant abnormalities with the exception of mildly elevated BUN at 23 and ALT of 85. KUB nonacute abdomen. CT abdomen and pelvis negative for bowel obstruction, negative for bowel ischemia and negative for acute intra-abdominal process at this time. Covid PCR was positive. Urinalysis positive and patient started on IV antibiotics with Rocephin. Preliminary Urine culture positive for gram-negative bacilli. Per RN reports, patient left AMA earlier this morning. Was notified after patient left facility at 7:18 AM. Patient left AGAINST MEDICAL ADVICE on 01/20/22 received notification after patient left at 7:18 AM. Adolfo Acosta NP rendered care for this patient independently, reviewed the findings and plan as documented in the note above. I did not physically speak with or examine the patient on this date. Patient Condition at Discharge: Stable Plan - Discharge Summary New Discharge Prescriptions: No Action lisinopriL [Zestril] 2.5 mg PO DAILY 30 Days #30 tab Zinc Gluconate [Zinc] 50 mg PO DAILY Multivit-Min/FA/Lycopen/Lutein [Centrum Silver Men Tablet] 1 tab PO DAILY Ascorbic Acid [Vitamin C] 500 mg PO DAILY Spironolactone [Aldactone] 25 mg PO DAILY 30 Days #30 tab Apixaban [Eliquis] 5 mg PO BID 30 Days #60 tab Fluticasone/Umeclidin/Vilanter [Trelegy Ellipta 100-62.5-25] 1 puff INHALATION RT-DAILY Cholecalciferol [Vitamin D3 (125 Mcg = 5000 Iu)] 125 mcg PO DAILY Discharge Medication List Ascorbic Acid [Vitamin C] 500 mg PO DAILY 09/11/20 [History] Apixaban [Eliquis] 5 mg PO BID 30 Days #60 tab 09/18/20 [Rx] Spironolactone [Aldactone] 25 mg PO DAILY 30 Days #30 tab 09/18/20 [Rx] lisinopriL [Zestril] 2.5 mg PO DAILY 30 Days #30 tab 09/18/20 [Rx] Fluticasone/Umeclidin/Vilanter [Trelegy Ellipta 100-62.5-25] 1 puff INHALATION RT-DAILY 12/03/20 [History] Cholecalciferol [Vitamin D3 (125 Mcg = 5000 Iu)] 125 mcg PO DAILY 01/16/22 [History] Multivit-Min/FA/Lycopen/Lutein [Centrum Silver Men Tablet] 1 tab PO DAILY 01/16/22 [History] Zinc Gluconate [Zinc] 50 mg PO DAILY 01/16/22 [History] Follow up Appointment(s)/Referral(s): Kahlil Liu MD [Primary Care Provider] - 1-2 days Discharge Disposition: Left Against Medical Advice
== END 2022-01-20 07:20 | disposition left against medical advice (07) | DRG 871 ==
LOC: EC 11:36 → 6NMEDSUR 20:19 → OBSVTOIN 01-18 09:05 → UNDODISOB 01-20 07:20
PROVIDERS: ADMIT Internal Medicine; ATTEND Internal Medicine
DX: A41.9 Sepsis, unspecified organism (principal); U07.1 COVID-19; N39.0 Urinary tract infection, site not specified; A08.4 Viral intestinal infection, unspecified; Z28.310 Unvaccinated for COVID-19; Z53.29 Procedure and treatment not carried out because of patient's decision for other reasons; E83.42 Hypomagnesemia; E87.6 Hypokalemia; F17.200 Nicotine dependence, unspecified, uncomplicated; I48.0 Paroxysmal atrial fibrillation; I10 Essential (primary) hypertension; J44.9 Chronic obstructive pulmonary disease, unspecified; Z79.01 Long term (current) use of anticoagulants; Z79.899 Other long term (current) drug therapy; Z88.2 Allergy status to sulfonamides; Z87.19 Personal history of other diseases of the digestive system; Z87.81 Personal history of (healed) traumatic fracture
CPT/HCPCS: 36415; 74018; 74177; 80053; 81001; 82150; 83605; 83690; 83735; 84484; 85025; 85027; 85610; 85730; 87077; 87086; 87186; 87502; 87635; 93005; 94640; 96361; 96365; 96367; 96375; 96376; 99285

== ENCOUNTER → 2022-08-21 | Outpatient (CLI) | payer MEDICARE ==
--- NOTE | 2022-08-22 14:49 | CT ---
EXAMINATION TYPE: CT chest wo con DATE OF EXAM: 08/21/2022 COMPARISON: None HISTORY: SOB and hx of lung nodule. CT DLP: 445 mGycm, Automated exposure control for dose reduction was used. CONTRAST: Performed injected with 0 mL of Isovue 300. TECHNIQUE: Axial images were obtained at 5 mm thick sections. Reconstructed images are reviewed on [employer] computer in the coronal plane. FINDINGS: Portion of the thyroid visualized is normal. Some bilateral apical scarring appears to be present. Mild emphysematous changes are present. There is a spiculated density in the periphery of the anterior lateral right upper lobe measuring 0.7 cm. Series 6 image 16. Small area of pneumonitis in the posterior right lung is present. Series 6 image 24. Emphysematous changes present. No enlarged mediastinal or hilar adenopathy is evident. The ascending aorta diameter at the level o f the main pulmonary artery is 3.5 cm. The main pulmonary artery diameter at the bifurcation is 2.4 cm. Mild coronary artery calcification is present. Limited CT sections are obtained through the upper abdomen. Abdomen is essentially unremarkable. IMPRESSIONS: 1. 0.7 cm density lateral right upper lung field. Short-term 6 month follow-up CT chest. For a high r isk patient PET/CT could be performed.
== END | disposition home or self-care (01) ==
LOC: RADCTMAIN 15:25
PROVIDERS: ATTEND Internal Medicine Sleep Medicine
DX: J98.4 Other disorders of lung (principal); R91.1 Solitary pulmonary nodule; R06.02 Shortness of breath
CPT/HCPCS: 71250

== ENCOUNTER → 2022-09-19 | Outpatient (CLI) | payer MEDICARE ==
--- NOTE | 2022-09-19 23:40 | PE ---
EXAMINATION TYPE: PET CT fusion skull to thigh DATE OF EXAM: 09/19/2022 CLINICAL INDICATION:Male, 67 years old with history of R91.1; TECHNIQUE: Following the intravenous administration of 9.45 mCi of F-18 FDG, whole body images are performed from the skull base to the midthigh. Images are reviewed on the computer in the coronal, a xial, and sagittal planes. Reconstructed rotating images are created on independent workstation and reviewed on the computer. A non-contrast CT is performed in conjunction with the PET scan. Glucose level 109 mg/dL COMPARISON: CT 01/16/2022, 08/21/2022, PET/CT None, FINDINGS: Mediastinal SUV mean is 1.4. Hepatic parenchyma SUV mean is 2.1. SKULL BASE AND NECK: No suspicious radiotracer activity. CHEST, MEDIASTINUM, AND HILAR REGION: Right upper lobe lateral 9 mm nodule in the subpleural region of the max SUV 1.1. No suspicious lymph adenopathy. ABDOMEN AND PELVIS: No suspicious radiotracer activity. OSSEOUS STRUCTURES: No suspicious radiotracer activity. OTHER CT: Posttreatment changes/trauma to the right globe. Atherosclerosis of the arteriovascular. Co ronary artery atherosclerosis. Surgical suture seen within the area of the cecum mild multilevel disc degeneration changes throughout the spine. Fixation hardware in the lower spine appears intact. Intr alobular emphysema changes are present. IMPRESSION: Minimally elevated FDG activity within the 9 mm subpleural nodule in the right upper lobe laterally. FDG levels are not above background levels but could be due to its small size. Consider short-term fo llow-up CT in 3 months.
== END | disposition home or self-care (01) ==
LOC: RADPETMAIN 12:44
PROVIDERS: ATTEND Family Medicine
DX: R91.1 Solitary pulmonary nodule (principal)
CPT/HCPCS: 78815; A9552